=== PATIENT | female | born 1945 | race Caucasian/White ===

== ENCOUNTER 2019-09-08 13:15 | Inpatient (IN) ==
[2019-09-08] MEDS ORDERED: Nitroglycerin 0.4 MG TAB.SUBL SL PRN (13:30)
[2019-09-08] MEDS ORDERED: *HR* Enoxaparin 100 MG/ML SYRINGE SQ SCH (16:00)
[2019-09-08] MEDS ORDERED: *HR* Warfarin 3 MG TABLET PO ONE ×2 (18:00→19:15)
[2019-09-08] MEDS ORDERED: Warfarin perPT PO PRN (18:00)
[2019-09-08] MEDS ORDERED: *HR* Warfarin 3 MG TABLET PO SCH (18:00)
[2019-09-08] MEDS: *HR* Metformin 500 MG TABLET PO SCH (18:01)
[2019-09-09 06:02] LABS: Basophils # 0.1 K/mcL (0.0-0.2); Basophils % 0.8 %; Eosinophils # 0.2 K/mcL (0.0-0.6); Eosinophils % 4.1 %; Hematocrit 30.7 % (35.3-44.9); Hemoglobin 10.2 g/dL (11.5-15.4); Immature Granulocytes % 2.9 % (0-4); Lymphocytes # 0.9 K/mcL (0.6-4.6); Lymphocytes % 15.4 %; Mean Corpuscular HGB Conc 33.2 g/dL (31.6-35.5); Mean Corpuscular Hemoglobin 32.7 pg (28.0-33.3); Mean Corpuscular Volume 98.4 fL (83.0-100.0); Mean Platelet Volume 9.4 fL (9.4-12.4); Monocytes # 0.7 K/mcL (0.0-1.3); Monocytes % 11.5 %; Neutrophils # 3.9 K/mcL (1.6-8.9); Platelet Count 267 K/mcL (140-400); Red Blood Count 3.12 M/mcL (3.82-4.97); Red Cell Distribution Width 13.1 % (11.5-14.5); Segmented Neutrophils % 65.3 %; White Blood Count 5.9 K/mcL (4.3-11.1)
[2019-09-09 06:23] LABS: INR 1.8; Prothrombin Time 20.4 Seconds (9.4-12.1)
[2019-09-09 06:37] LABS: Calcium 9.1 mg/dL (8.6-10.3); Potassium 4.8 mEq/L (3.5-5.1)
[2019-09-09] MEDS: Isosorbide MONOnitrate (24 HR) 60 MG TAB.ER.24H PO SCH (08:34)
[2019-09-09] MEDS: Multivit/Ca/Min/Fe/FA 1 TAB TABLET PO SCH (08:34)
[2019-09-09] MEDS: Aspirin Enteric Coated 81 MG Tablet PO SCH ×2 (08:34→08:35)
[2019-09-09] MEDS: amLODIPine 5 MG TABLET PO SCH (08:34)
[2019-09-09] MEDS: *HR* SitaGLIPtin 25 MG TABLET PO SCH (08:35)
[2019-09-09] MEDS: Gabapentin 300 MG CAPSULE PO SCH (08:35)
[2019-09-09] MEDS: Cholecalciferol (D-3) 1,000 UNIT (25MCG) TABLET PO SCH (08:35)
[2019-09-09] MEDS: *HR* Metformin 500 MG TABLET PO SCH (08:35)
[2019-09-09] MEDS: *HR* Enoxaparin 100 MG/ML SYRINGE SQ SCH (15:53)
[2019-09-09] MEDS: GlipiZIDE 5 MG TABLET PO SCH (17:18)
[2019-09-09] MEDS ORDERED: *HR* Warfarin 2 MG TABLET PO ONE (18:00)
[2019-09-10] MEDS ORDERED: Acetaminophen 325 MG TABLET PO ONE ×2 (02:56→05:47)
[2019-09-10] MEDS ORDERED: Ondansetron ODT 4 MG TAB.RAPDIS SL ONE (05:54)
[2019-09-10 08:02] LABS: INR 2.2; Prothrombin Time 25.4 Seconds (9.4-12.1)
[2019-09-10 08:13] LABS: Calcium 9.3 mg/dL (8.6-10.3); Potassium 4.7 mEq/L (3.5-5.1)
[2019-09-10] MEDS: Multivit/Ca/Min/Fe/FA 1 TAB TABLET PO SCH (08:33)
[2019-09-10] MEDS: Gabapentin 300 MG CAPSULE PO SCH (08:33)
[2019-09-10] MEDS: GlipiZIDE 5 MG TABLET PO SCH ×2 (08:33→16:53)
[2019-09-10] MEDS: Isosorbide MONOnitrate (24 HR) 60 MG TAB.ER.24H PO SCH (08:33)
[2019-09-10] MEDS: Aspirin Enteric Coated 81 MG Tablet PO SCH (08:33)
[2019-09-10] MEDS: Cholecalciferol (D-3) 1,000 UNIT (25MCG) TABLET PO SCH (08:34)
[2019-09-10] MEDS: amLODIPine 5 MG TABLET PO SCH (08:34)
[2019-09-10] MEDS: *HR* SitaGLIPtin 25 MG TABLET PO SCH (08:34)
[2019-09-10] MEDS: *HR* Enoxaparin 100 MG/ML SYRINGE SQ SCH (14:45)
[2019-09-10] MEDS ORDERED: Ondansetron ODT 4 MG TAB.RAPDIS SL PRN (20:14)
[2019-09-10] MEDS: Acetaminophen 325 MG TABLET PO PRN (21:52)
[2019-09-10] MEDS: Nystatin POWDER 30 GM BOTTLE TP SCH (22:07)
[2019-09-11 08:26] LABS: INR 2.1; Prothrombin Time 23.9 Seconds (9.4-12.1)
[2019-09-11] MEDS: Aspirin Enteric Coated 81 MG Tablet PO SCH (09:07)
[2019-09-11] MEDS: Cholecalciferol (D-3) 1,000 UNIT (25MCG) TABLET PO SCH (09:07)
[2019-09-11] MEDS: GlipiZIDE 5 MG TABLET PO SCH ×2 (09:07→17:45)
[2019-09-11] MEDS: amLODIPine 5 MG TABLET PO SCH (09:07)
[2019-09-11] MEDS: Multivit/Ca/Min/Fe/FA 1 TAB TABLET PO SCH (09:07)
[2019-09-11] MEDS: Gabapentin 300 MG CAPSULE PO SCH (09:07)
[2019-09-11] MEDS: *HR* SitaGLIPtin 25 MG TABLET PO SCH (09:07)
[2019-09-11] MEDS: Isosorbide MONOnitrate (24 HR) 60 MG TAB.ER.24H PO SCH (09:08)
[2019-09-11] MEDS: Nystatin POWDER 30 GM BOTTLE TP SCH ×3 (09:10→19:26)
[2019-09-11] MEDS ORDERED: *HR* Warfarin 2 MG TABLET PO ONE (18:00)
[2019-09-11] MEDS: Acetaminophen 325 MG TABLET PO PRN (21:49)
[2019-09-12] MEDS: Acetaminophen 325 MG TABLET PO PRN ×2 (05:00→18:59)
[2019-09-12 07:56] LABS: Prothrombin Time 22.5 Seconds (9.4-12.1)
[2019-09-12] MEDS ORDERED: Bisacodyl 10 MG RECTAL SUPPOSITORY RC PRN (10:44)
[2019-09-12] MEDS: Gabapentin 300 MG CAPSULE PO SCH (11:09)
[2019-09-12] MEDS: Aspirin Enteric Coated 81 MG Tablet PO SCH (11:09)
[2019-09-12] MEDS: Cholecalciferol (D-3) 1,000 UNIT (25MCG) TABLET PO SCH (11:09)
[2019-09-12] MEDS: Multivit/Ca/Min/Fe/FA 1 TAB TABLET PO SCH (11:10)
[2019-09-12] MEDS: amLODIPine 5 MG TABLET PO SCH (11:10)
[2019-09-12] MEDS: Isosorbide MONOnitrate (24 HR) 60 MG TAB.ER.24H PO SCH (11:10)
[2019-09-12] MEDS: *HR* SitaGLIPtin 25 MG TABLET PO SCH (11:10)
[2019-09-12] MEDS: GlipiZIDE 5 MG TABLET PO SCH ×2 (11:11→16:59)
[2019-09-12] MEDS ORDERED: Dextrose Gel 15 GM/37.5 ML TUBE PO PRN ×2 (12:01)
[2019-09-12] MEDS ORDERED: *HR* Dextrose 50 % in Water (Vial) 50 ML VIAL IVP PRN (12:01)
[2019-09-12] MEDS ORDERED: D5% in Water 1,000 ML IVC PRN (12:01)
[2019-09-12] MEDS: Insulin LISPRO 300 UNITS/3 ML VIAL SQ SCH ×3 (12:47→20:35)
[2019-09-12] MEDS: Nystatin POWDER 30 GM BOTTLE TP SCH ×3 (17:05→20:41)
[2019-09-12] MEDS ORDERED: *HR* Warfarin 2 MG TABLET PO ONE (18:00)
[2019-09-12 21:05] LABS: Estimated Average Glucose 209 mg/dl
[2019-09-12 23:56] LABS: Bilirubin,Urine Negative (Negative); Blood,Urine Moderate (Negative); Clarity,Urine Clear (Clear); Color,Urine Yellow (Yellow); Glucose,Urine (UA) 100 mg/dL (Normal); Ketones,Urine Negative (Negative); Leukocyte Esterase,Urine Moderate (Negative); Nitrite,Urine Negative (Negative); Protein,Urine 100 mg/dL (Neg-Trace); Specific Gravity,Urine 1.015 (1.010-1.025); Urobilinogen,Urine Normal (Normal)
[2019-09-13 00:02] LABS: Squamous Epithelial Cell,Urine Few per lpf (None-Few); WBC,Urine 50-100 per hpf (0-3)
[2019-09-13 00:03] LABS: Bacteria,Urine Few per hpf (None-Few)
[2019-09-13 07:43] LABS: Prothrombin Time 23.2 Seconds (9.4-12.1)
[2019-09-13] MEDS: Insulin LISPRO 300 UNITS/3 ML VIAL SQ SCH ×4 (08:40→21:22)
[2019-09-13] MEDS: amLODIPine 5 MG TABLET PO SCH (08:52)
[2019-09-13] MEDS: Gabapentin 300 MG CAPSULE PO SCH (08:52)
[2019-09-13] MEDS: Aspirin Enteric Coated 81 MG Tablet PO SCH (08:53)
[2019-09-13] MEDS: Isosorbide MONOnitrate (24 HR) 60 MG TAB.ER.24H PO SCH (08:54)
[2019-09-13] MEDS: *HR* SitaGLIPtin 25 MG TABLET PO SCH (08:54)
[2019-09-13] MEDS: Cholecalciferol (D-3) 1,000 UNIT (25MCG) TABLET PO SCH (08:54)
[2019-09-13] MEDS: Multivit/Ca/Min/Fe/FA 1 TAB TABLET PO SCH (08:54)
[2019-09-13] MEDS: GlipiZIDE 5 MG TABLET PO SCH ×2 (08:54→17:03)
[2019-09-13] MEDS: Nystatin POWDER 30 GM BOTTLE TP SCH ×3 (08:55→21:22)
[2019-09-13] MEDS ORDERED: *HR* Warfarin 2 MG TABLET PO ONE (18:00)
[2019-09-13] MEDS: Acetaminophen 325 MG TABLET PO PRN (22:33)
[2019-09-14] MEDS: Insulin LISPRO 300 UNITS/3 ML VIAL SQ SCH ×4 (08:02→20:03)
[2019-09-14 08:10] LABS: INR 1.9; Prothrombin Time 21.5 Seconds (9.4-12.1)
[2019-09-14] MEDS: Isosorbide MONOnitrate (24 HR) 60 MG TAB.ER.24H PO SCH (08:24)
[2019-09-14] MEDS: Aspirin Enteric Coated 81 MG Tablet PO SCH (08:25)
[2019-09-14] MEDS: GlipiZIDE 5 MG TABLET PO SCH ×3 (08:25→18:11)
[2019-09-14] MEDS: Gabapentin 300 MG CAPSULE PO SCH (08:25)
[2019-09-14] MEDS: Multivit/Ca/Min/Fe/FA 1 TAB TABLET PO SCH (08:25)
[2019-09-14] MEDS: Cholecalciferol (D-3) 1,000 UNIT (25MCG) TABLET PO SCH (08:25)
[2019-09-14] MEDS: *HR* SitaGLIPtin 25 MG TABLET PO SCH (08:25)
[2019-09-14] MEDS: amLODIPine 5 MG TABLET PO SCH (08:26)
[2019-09-14] MEDS: Nystatin POWDER 30 GM BOTTLE TP SCH ×3 (08:30→20:04)
[2019-09-14] MEDS: Acetaminophen 325 MG TABLET PO PRN ×2 (10:33→18:11)
[2019-09-14] MEDS: cephALEXin 500 MG CAPSULE PO SCH ×3 (10:33→20:02)
[2019-09-14] MEDS ORDERED: *HR* Warfarin 5 MG TABLET PO ONE (18:00)
[2019-09-15] MEDS: Acetaminophen 325 MG TABLET PO PRN ×2 (02:19→20:31)
[2019-09-15 07:27] LABS: INR 1.9; Prothrombin Time 21.6 Seconds (9.4-12.1)
[2019-09-15] MEDS: Insulin LISPRO 300 UNITS/3 ML VIAL SQ SCH ×4 (07:37→20:30)
[2019-09-15] MEDS: Isosorbide MONOnitrate (24 HR) 60 MG TAB.ER.24H PO SCH (08:13)
[2019-09-15] MEDS: Aspirin Enteric Coated 81 MG Tablet PO SCH (08:13)
[2019-09-15] MEDS: Multivit/Ca/Min/Fe/FA 1 TAB TABLET PO SCH (08:13)
[2019-09-15] MEDS: *HR* SitaGLIPtin 25 MG TABLET PO SCH (08:13)
[2019-09-15] MEDS: Gabapentin 300 MG CAPSULE PO SCH (08:13)
[2019-09-15] MEDS: Cholecalciferol (D-3) 1,000 UNIT (25MCG) TABLET PO SCH (08:13)
[2019-09-15] MEDS: amLODIPine 5 MG TABLET PO SCH (08:13)
[2019-09-15] MEDS: GlipiZIDE 5 MG TABLET PO SCH ×2 (08:13→18:02)
[2019-09-15] MEDS: cephALEXin 500 MG CAPSULE PO SCH (08:13)
[2019-09-15] MEDS: Nystatin POWDER 30 GM BOTTLE TP SCH ×3 (08:14→20:31)
[2019-09-15 12:10] LABS: Hematocrit 33.2 % (35.3-44.9); Hemoglobin 10.6 g/dL (11.5-15.4); Mean Corpuscular HGB Conc 31.9 g/dL (31.6-35.5); Mean Corpuscular Hemoglobin 32.5 pg (28.0-33.3); Mean Corpuscular Volume 101.8 fL (83.0-100.0); Mean Platelet Volume 9.3 fL (9.4-12.4); Platelet Count 236 K/mcL (140-400); Red Blood Count 3.26 M/mcL (3.82-4.97); Red Cell Distribution Width 13.2 % (11.5-14.5)
[2019-09-15 12:24] LABS: Calcium 9.1 mg/dL (8.6-10.3); Potassium 4.8 mEq/L (3.5-5.1)
[2019-09-15] MEDS ORDERED: *HR* Warfarin 5 MG TABLET PO ONE (18:00)
[2019-09-16] MEDS: Acetaminophen 325 MG TABLET PO PRN ×2 (05:28→19:49)
[2019-09-16 07:05] LABS: INR 1.9; Prothrombin Time 21.7 Seconds (9.4-12.1)
[2019-09-16] MEDS: Insulin LISPRO 300 UNITS/3 ML VIAL SQ SCH ×4 (07:27→19:49)
[2019-09-16] MEDS: Isosorbide MONOnitrate (24 HR) 60 MG TAB.ER.24H PO SCH (07:52)
[2019-09-16] MEDS: Aspirin Enteric Coated 81 MG Tablet PO SCH (07:52)
[2019-09-16] MEDS: Gabapentin 300 MG CAPSULE PO SCH (07:52)
[2019-09-16] MEDS: Multivit/Ca/Min/Fe/FA 1 TAB TABLET PO SCH (07:52)
[2019-09-16] MEDS: amLODIPine 5 MG TABLET PO SCH (07:52)
[2019-09-16] MEDS: GlipiZIDE 5 MG TABLET PO SCH ×2 (07:52→16:56)
[2019-09-16] MEDS: *HR* SitaGLIPtin 25 MG TABLET PO SCH (07:53)
[2019-09-16] MEDS: Cholecalciferol (D-3) 1,000 UNIT (25MCG) TABLET PO SCH (07:53)
[2019-09-16] MEDS: Nystatin POWDER 30 GM BOTTLE TP SCH ×2 (07:59→15:11)
[2019-09-16] MEDS ORDERED: *HR* Warfarin 5 MG TABLET PO ONE (18:00)
[2019-09-17] MEDS: Acetaminophen 325 MG TABLET PO PRN (02:14)
[2019-09-17] MEDS: Insulin LISPRO 300 UNITS/3 ML VIAL SQ SCH ×4 (08:11→20:29)
[2019-09-17] MEDS: GlipiZIDE 5 MG TABLET PO SCH ×2 (08:48→16:36)
[2019-09-17] MEDS: Isosorbide MONOnitrate (24 HR) 60 MG TAB.ER.24H PO SCH (08:48)
[2019-09-17] MEDS: amLODIPine 5 MG TABLET PO SCH (08:48)
[2019-09-17] MEDS: *HR* SitaGLIPtin 25 MG TABLET PO SCH (08:50)
[2019-09-17] MEDS: Cholecalciferol (D-3) 1,000 UNIT (25MCG) TABLET PO SCH (08:50)
[2019-09-17] MEDS: Gabapentin 300 MG CAPSULE PO SCH (08:50)
[2019-09-17] MEDS: Aspirin Enteric Coated 81 MG Tablet PO SCH (08:50)
[2019-09-17] MEDS: Multivit/Ca/Min/Fe/FA 1 TAB TABLET PO SCH (08:50)
[2019-09-17 13:44] LABS: Prothrombin Time 22.7 Seconds (9.4-12.1)
[2019-09-17] MEDS ORDERED: *HR* Warfarin 2 MG TABLET PO ONE (18:00)
[2019-09-18] MEDS: Acetaminophen 325 MG TABLET PO PRN ×2 (05:45→21:34)
[2019-09-18 06:59] LABS: Prothrombin Time 22.5 Seconds (9.4-12.1)
[2019-09-18] MEDS: Insulin LISPRO 300 UNITS/3 ML VIAL SQ SCH ×4 (08:08→20:04)
[2019-09-18] MEDS: amLODIPine 5 MG TABLET PO SCH (08:38)
[2019-09-18] MEDS: Aspirin Enteric Coated 81 MG Tablet PO SCH (08:39)
[2019-09-18] MEDS: GlipiZIDE 5 MG TABLET PO SCH ×2 (08:39→16:45)
[2019-09-18] MEDS: *HR* SitaGLIPtin 25 MG TABLET PO SCH (08:39)
[2019-09-18] MEDS: Gabapentin 300 MG CAPSULE PO SCH (08:39)
[2019-09-18] MEDS: Cholecalciferol (D-3) 1,000 UNIT (25MCG) TABLET PO SCH (08:40)
[2019-09-18] MEDS: Isosorbide MONOnitrate (24 HR) 60 MG TAB.ER.24H PO SCH (08:40)
[2019-09-18] MEDS: Multivit/Ca/Min/Fe/FA 1 TAB TABLET PO SCH (08:40)
[2019-09-18] MEDS ORDERED: *HR* Warfarin 5 MG TABLET PO ONE (18:15)
[2019-09-19] MEDS: Insulin LISPRO 300 UNITS/3 ML VIAL SQ SCH ×4 (07:37→20:30)
[2019-09-19] MEDS: *HR* SitaGLIPtin 25 MG TABLET PO SCH (08:51)
[2019-09-19] MEDS: Isosorbide MONOnitrate (24 HR) 60 MG TAB.ER.24H PO SCH (08:51)
[2019-09-19] MEDS: GlipiZIDE 5 MG TABLET PO SCH ×2 (08:51→17:01)
[2019-09-19] MEDS: amLODIPine 5 MG TABLET PO SCH (08:52)
[2019-09-19] MEDS: Aspirin Enteric Coated 81 MG Tablet PO SCH (08:52)
[2019-09-19] MEDS: Gabapentin 300 MG CAPSULE PO SCH (08:52)
[2019-09-19] MEDS: Cholecalciferol (D-3) 1,000 UNIT (25MCG) TABLET PO SCH (08:54)
[2019-09-19] MEDS: Multivit/Ca/Min/Fe/FA 1 TAB TABLET PO SCH (08:54)
[2019-09-19 09:41] LABS: INR 1.9; Prothrombin Time 21.4 Seconds (9.4-12.1)
[2019-09-19] MEDS: Acetaminophen 325 MG TABLET PO PRN ×2 (13:41→20:31)
[2019-09-19] MEDS ORDERED: *HR* Warfarin 5 MG TABLET PO ONE (18:00)
[2019-09-19] MEDS: Nystatin POWDER 30 GM BOTTLE TP PRN (20:35)
[2019-09-20] MEDS: Insulin LISPRO 300 UNITS/3 ML VIAL SQ SCH ×4 (08:18→21:04)
[2019-09-20] MEDS: Gabapentin 300 MG CAPSULE PO SCH (08:23)
[2019-09-20] MEDS: *HR* SitaGLIPtin 25 MG TABLET PO SCH (08:23)
[2019-09-20] MEDS: Aspirin Enteric Coated 81 MG Tablet PO SCH (08:24)
[2019-09-20] MEDS: amLODIPine 5 MG TABLET PO SCH (08:24)
[2019-09-20] MEDS: GlipiZIDE 5 MG TABLET PO SCH ×2 (08:24→17:21)
[2019-09-20] MEDS: Multivit/Ca/Min/Fe/FA 1 TAB TABLET PO SCH (08:24)
[2019-09-20] MEDS: Isosorbide MONOnitrate (24 HR) 60 MG TAB.ER.24H PO SCH (08:25)
[2019-09-20] MEDS: Cholecalciferol (D-3) 1,000 UNIT (25MCG) TABLET PO SCH (08:25)
[2019-09-20] MEDS ORDERED: Furosemide 20 MG TABLET PO ONE (09:11)
[2019-09-20 09:25] LABS: INR 1.9; Prothrombin Time 21.5 Seconds (9.4-12.1)
[2019-09-20] MEDS: Nystatin POWDER 30 GM BOTTLE TP PRN ×2 (11:07→21:13)
[2019-09-20] MEDS: Acetaminophen 325 MG TABLET PO PRN (13:34)
[2019-09-20] MEDS ORDERED: *HR* Warfarin 3 MG TABLET PO ONE (18:00)
[2019-09-21] MEDS: Acetaminophen 325 MG TABLET PO PRN ×3 (02:43→22:44)
[2019-09-21 07:24] LABS: Basophils % 0.4 %; Eosinophils # 0.3 K/mcL (0.0-0.6); Eosinophils % 5.6 %; Hematocrit 30.1 % (35.3-44.9); Immature Granulocytes % 0.4 % (0-4); Lymphocytes # 0.9 K/mcL (0.6-4.6); Lymphocytes % 17.8 %; Mean Corpuscular HGB Conc 33.2 g/dL (31.6-35.5); Mean Corpuscular Hemoglobin 32.9 pg (28.0-33.3); Mean Platelet Volume 8.6 fL (9.4-12.4); Monocytes # 0.6 K/mcL (0.0-1.3); Monocytes % 11.7 %; Neutrophils # 3.1 K/mcL (1.6-8.9); Platelet Count 179 K/mcL (140-400); Red Blood Count 3.04 M/mcL (3.82-4.97); Red Cell Distribution Width 12.8 % (11.5-14.5); Segmented Neutrophils % 64.1 %; White Blood Count 4.8 K/mcL (4.3-11.1)
[2019-09-21 07:31] LABS: INR 2.2; Prothrombin Time 25.5 Seconds (9.4-12.1)
[2019-09-21 07:44] LABS: Calcium 9.1 mg/dL (8.6-10.3); Potassium 4.3 mEq/L (3.5-5.1)
[2019-09-21] MEDS: Insulin LISPRO 300 UNITS/3 ML VIAL SQ SCH ×4 (09:17→21:23)
[2019-09-21] MEDS: *HR* SitaGLIPtin 25 MG TABLET PO SCH (10:15)
[2019-09-21] MEDS: Cholecalciferol (D-3) 1,000 UNIT (25MCG) TABLET PO SCH (10:15)
[2019-09-21] MEDS: GlipiZIDE 5 MG TABLET PO SCH ×2 (10:16→17:29)
[2019-09-21] MEDS: Isosorbide MONOnitrate (24 HR) 60 MG TAB.ER.24H PO SCH (10:16)
[2019-09-21] MEDS: amLODIPine 5 MG TABLET PO SCH (10:16)
[2019-09-21] MEDS: Gabapentin 300 MG CAPSULE PO SCH (10:16)
[2019-09-21] MEDS: Aspirin Enteric Coated 81 MG Tablet PO SCH (10:16)
[2019-09-21] MEDS: Multivit/Ca/Min/Fe/FA 1 TAB TABLET PO SCH (10:16)
[2019-09-21 12:46] LABS: Bilirubin,Urine Negative (Negative); Blood,Urine Negative (Negative); Clarity,Urine Clear (Clear); Color,Urine Yellow (Yellow); Glucose,Urine (UA) Normal (Normal); Ketones,Urine Negative (Negative); Leukocyte Esterase,Urine Negative (Negative); Nitrite,Urine Negative (Negative); Protein,Urine 100 mg/dL (Neg-Trace); Specific Gravity,Urine 1.015 (1.010-1.025); Urobilinogen,Urine Normal (Normal)
[2019-09-21 12:54] LABS: Squamous Epithelial Cell,Urine Few per lpf (None-Few)
[2019-09-21] MEDS: Furosemide 20 MG TABLET PO SCH (17:29)
[2019-09-21] MEDS ORDERED: *HR* Warfarin 3 MG TABLET PO ONE (18:00)
[2019-09-22] MEDS: amLODIPine 5 MG TABLET PO SCH (08:12)
[2019-09-22] MEDS: Cholecalciferol (D-3) 1,000 UNIT (25MCG) TABLET PO SCH (08:12)
[2019-09-22] MEDS: Multivit/Ca/Min/Fe/FA 1 TAB TABLET PO SCH (08:12)
[2019-09-22] MEDS: Insulin LISPRO 300 UNITS/3 ML VIAL SQ SCH ×4 (08:12→20:22)
[2019-09-22] MEDS: Isosorbide MONOnitrate (24 HR) 60 MG TAB.ER.24H PO SCH (08:13)
[2019-09-22] MEDS: *HR* SitaGLIPtin 25 MG TABLET PO SCH (08:13)
[2019-09-22] MEDS: GlipiZIDE 5 MG TABLET PO SCH ×2 (08:13→17:54)
[2019-09-22] MEDS: Gabapentin 300 MG CAPSULE PO SCH (08:13)
[2019-09-22] MEDS: Aspirin Enteric Coated 81 MG Tablet PO SCH (08:14)
[2019-09-22] MEDS: Furosemide 20 MG TABLET PO SCH ×2 (08:14→17:55)
[2019-09-22 10:36] LABS: INR 2.5; Prothrombin Time 28.1 Seconds (9.4-12.1)
[2019-09-22] MEDS ORDERED: *HR* Warfarin 2 MG TABLET PO ONE (18:00)
[2019-09-22] MEDS: Acetaminophen 325 MG TABLET PO PRN (20:21)
[2019-09-22] MEDS: Nystatin POWDER 30 GM BOTTLE TP PRN (20:22)
[2019-09-23 08:20] LABS: INR 2.8; Prothrombin Time 32.3 Seconds (9.4-12.1)
[2019-09-23] MEDS: Insulin LISPRO 300 UNITS/3 ML VIAL SQ SCH ×4 (08:49→20:42)
[2019-09-23] MEDS: amLODIPine 5 MG TABLET PO SCH (09:43)
[2019-09-23] MEDS: Aspirin Enteric Coated 81 MG Tablet PO SCH (09:43)
[2019-09-23] MEDS: Multivit/Ca/Min/Fe/FA 1 TAB TABLET PO SCH (09:44)
[2019-09-23] MEDS: *HR* SitaGLIPtin 25 MG TABLET PO SCH (09:44)
[2019-09-23] MEDS: Furosemide 20 MG TABLET PO SCH ×2 (09:44→17:06)
[2019-09-23] MEDS: GlipiZIDE 5 MG TABLET PO SCH ×2 (09:45→17:06)
[2019-09-23] MEDS: Gabapentin 300 MG CAPSULE PO SCH (09:45)
[2019-09-23] MEDS: Isosorbide MONOnitrate (24 HR) 60 MG TAB.ER.24H PO SCH (09:45)
[2019-09-23] MEDS: Cholecalciferol (D-3) 1,000 UNIT (25MCG) TABLET PO SCH (09:45)
[2019-09-23] MEDS: *HR* HYDROcodone/Acet 5/325 mg TABLET PO PRN (14:05)
[2019-09-23] MEDS ORDERED: *HR* Warfarin 1 MG TABLET PO ONE (18:00)
[2019-09-23] MEDS: Acetaminophen 325 MG TABLET PO PRN (22:38)
[2019-09-24] MEDS ORDERED: Furosemide 40 MG/4 ML VIAL IVP SCH (09:00)
[2019-09-24] MEDS: Multivit/Ca/Min/Fe/FA 1 TAB TABLET PO SCH (09:23)
[2019-09-24] MEDS: *HR* HYDROcodone/Acet 5/325 mg TABLET PO PRN (09:23)
[2019-09-24] MEDS: *HR* SitaGLIPtin 25 MG TABLET PO SCH (09:23)
[2019-09-24] MEDS: Aspirin Enteric Coated 81 MG Tablet PO SCH (09:23)
[2019-09-24] MEDS: Gabapentin 300 MG CAPSULE PO SCH (09:23)
[2019-09-24] MEDS: amLODIPine 5 MG TABLET PO SCH (09:23)
[2019-09-24] MEDS: GlipiZIDE 5 MG TABLET PO SCH ×2 (09:23→18:02)
[2019-09-24] MEDS: Isosorbide MONOnitrate (24 HR) 60 MG TAB.ER.24H PO SCH (09:23)
[2019-09-24] MEDS: Insulin LISPRO 300 UNITS/3 ML VIAL SQ SCH ×4 (09:24→20:02)
[2019-09-24] MEDS: Cholecalciferol (D-3) 1,000 UNIT (25MCG) TABLET PO SCH (09:26)
[2019-09-24 09:51] LABS: INR 2.6; Prothrombin Time 29.2 Seconds (9.4-12.1)
[2019-09-24] MEDS: Furosemide 40 MG TABLET PO SCH ×2 (12:43→18:02)
[2019-09-24] MEDS ORDERED: *HR* Warfarin 1 MG TABLET PO ONE (18:00)
[2019-09-24] MEDS: Acetaminophen 325 MG TABLET PO PRN (19:58)
[2019-09-25] MEDS: Insulin LISPRO 300 UNITS/3 ML VIAL SQ SCH ×4 (07:55→21:31)
[2019-09-25] MEDS: *HR* SitaGLIPtin 25 MG TABLET PO SCH (08:14)
[2019-09-25] MEDS: Furosemide 40 MG TABLET PO SCH ×2 (08:14→18:52)
[2019-09-25] MEDS: GlipiZIDE 5 MG TABLET PO SCH ×2 (08:14→18:52)
[2019-09-25] MEDS: Gabapentin 300 MG CAPSULE PO SCH (08:14)
[2019-09-25] MEDS: Cholecalciferol (D-3) 1,000 UNIT (25MCG) TABLET PO SCH (08:15)
[2019-09-25] MEDS: amLODIPine 5 MG TABLET PO SCH (08:15)
[2019-09-25] MEDS: Isosorbide MONOnitrate (24 HR) 60 MG TAB.ER.24H PO SCH (08:15)
[2019-09-25] MEDS: Multivit/Ca/Min/Fe/FA 1 TAB TABLET PO SCH (08:15)
[2019-09-25] MEDS: Aspirin Enteric Coated 81 MG Tablet PO SCH (08:15)
[2019-09-25] MEDS: *HR* HYDROcodone/Acet 5/325 mg TABLET PO PRN ×2 (09:50→21:43)
[2019-09-25] MEDS: Furosemide 20 MG TABLET PO SCH (10:23)
[2019-09-25 12:39] LABS: INR 1.9; Prothrombin Time 22.1 Seconds (9.4-12.1)
[2019-09-25 12:41] LABS: Hematocrit 33.3 % (35.3-44.9); Hemoglobin 10.9 g/dL (11.5-15.4); Mean Corpuscular HGB Conc 32.7 g/dL (31.6-35.5); Mean Corpuscular Hemoglobin 32.6 pg (28.0-33.3); Mean Corpuscular Volume 99.7 fL (83.0-100.0); Mean Platelet Volume 9.1 fL (9.4-12.4); Platelet Count 211 K/mcL (140-400); Red Blood Count 3.34 M/mcL (3.82-4.97); Red Cell Distribution Width 12.8 % (11.5-14.5); White Blood Count 5.4 K/mcL (4.3-11.1)
[2019-09-25 12:51] LABS: Calcium 9.3 mg/dL (8.6-10.3); Potassium 4.3 mEq/L (3.5-5.1)
[2019-09-25] MEDS ORDERED: *HR* Warfarin 2 MG TABLET PO ONE (18:00)
[2019-09-26 07:13] VITALS: BP 130/64
[2019-09-26 08:10] LABS: INR 1.8; Prothrombin Time 20.1 Seconds (9.4-12.1)
[2019-09-26] MEDS: amLODIPine 5 MG TABLET PO SCH (08:28)
[2019-09-26] MEDS: Gabapentin 300 MG CAPSULE PO SCH (08:28)
[2019-09-26] MEDS: Multivit/Ca/Min/Fe/FA 1 TAB TABLET PO SCH (08:28)
[2019-09-26] MEDS: Aspirin Enteric Coated 81 MG Tablet PO SCH (08:28)
[2019-09-26] MEDS: *HR* SitaGLIPtin 25 MG TABLET PO SCH (08:28)
[2019-09-26] MEDS: Isosorbide MONOnitrate (24 HR) 60 MG TAB.ER.24H PO SCH (08:28)
[2019-09-26] MEDS: Insulin LISPRO 300 UNITS/3 ML VIAL SQ SCH (08:29)
[2019-09-26] MEDS: Cholecalciferol (D-3) 1,000 UNIT (25MCG) TABLET PO SCH (08:29)
[2019-09-26] MEDS: GlipiZIDE 5 MG TABLET PO SCH (08:29)
[2019-09-26] MEDS ORDERED: Furosemide 40 MG TABLET PO SCH (09:00)
[2019-09-26 09:42] LABS: Hematocrit 32.7 % (35.3-44.9); Hemoglobin 10.7 g/dL (11.5-15.4); Mean Corpuscular HGB Conc 32.7 g/dL (31.6-35.5); Mean Corpuscular Hemoglobin 32.4 pg (28.0-33.3); Mean Corpuscular Volume 99.1 fL (83.0-100.0); Mean Platelet Volume 9.4 fL (9.4-12.4); Platelet Count 214 K/mcL (140-400); Red Cell Distribution Width 12.8 % (11.5-14.5); White Blood Count 5.3 K/mcL (4.3-11.1)
[2019-09-26 10:00] LABS: Calcium 9.5 mg/dL (8.6-10.3)
== END 2019-09-26 10:55 | disposition home or self-care (01) | DRG 945 ==
LOC: INPPIK 15:38
PROVIDERS: ADMIT Family Medicine; ATTEND Family Medicine

== ENCOUNTER 2020-05-17 14:51 | Inpatient (IN) ==
[2020-05-18] MEDS: Insulin LISPRO 300 UNITS/3 ML VIAL SQ SCH ×2 (16:58→21:20)
[2020-05-18] MEDS: Gabapentin 300 MG CAPSULE PO SCH (19:50)
[2020-05-18] MEDS: Melatonin 3 MG TABLET PO SCH (19:50)
[2020-05-18] MEDS: Apixaban 5 MG TABLET PO SCH (19:51)
[2020-05-18] MEDS: Acetaminophen 325 MG TABLET PO PRN (19:52)
[2020-05-18] MEDS ORDERED: Insulin DETEMIR 100 UNIT/ML X5UNITS SQ SCH (21:00)
[2020-05-19 05:49] LABS: Basophils # 0.1 K/mcL (0.0-0.2); Basophils % 0.6 %; Eosinophils % 0.3 %; Hematocrit 33.5 % (35.3-44.9); Immature Granulocytes % 4.9 % (0-4); Lymphocytes % 12.5 %; Mean Corpuscular HGB Conc 32.8 g/dL (31.6-35.5); Mean Corpuscular Hemoglobin 32.6 pg (28.0-33.3); Mean Corpuscular Volume 99.4 fL (83.0-100.0); Monocytes # 0.7 K/mcL (0.0-1.3); Monocytes % 9.5 %; Neutrophils # 5.6 K/mcL (1.6-8.9); Nucleated Red Blood Cells 0.3 /100 WBC (0); Platelet Count 292 K/mcL (140-400); Red Blood Count 3.37 M/mcL (3.82-4.97); Red Cell Distribution Width 12.9 % (11.5-14.5); Segmented Neutrophils % 72.2 %; White Blood Count 7.8 K/mcL (4.3-11.1)
[2020-05-19 06:07] LABS: Calcium 8.9 mg/dL (8.6-10.3); Potassium 4.2 mEq/L (3.5-5.1)
[2020-05-19] MEDS: Apixaban 5 MG TABLET PO SCH ×2 (08:01→20:36)
[2020-05-19] MEDS: Cholecalciferol (D-3) 1,000 UNIT (25MCG) TABLET PO SCH (08:02)
[2020-05-19] MEDS: Gabapentin 300 MG CAPSULE PO SCH ×2 (08:02→20:36)
[2020-05-19] MEDS: *HR* SitaGLIPtin 25 MG TABLET PO SCH (08:02)
[2020-05-19] MEDS: Multivit/Ca/Min/Fe/FA 1 TAB TABLET PO SCH (08:02)
[2020-05-19] MEDS: Insulin LISPRO 300 UNITS/3 ML VIAL SQ SCH ×4 (08:04→20:37)
[2020-05-19] MEDS ORDERED: predniSONE 20 MG TABLET PO SCH (09:00)
[2020-05-19] MEDS ORDERED: *HR* LORazepam 0.5 MG TABLET PO PRN (16:15)
[2020-05-19] MEDS: Furosemide 20 MG TABLET PO SCH (16:54)
[2020-05-19] MEDS: Budesonide/Formoterol 160/4.5 1 PUFF INH IH SCH ×2 (17:58→22:01)
[2020-05-19] MEDS: Melatonin 3 MG TABLET PO SCH (20:36)
[2020-05-19] MEDS: Insulin DETEMIR 100 UNIT/ML X5UNITS SQ SCH (20:42)
[2020-05-20] MEDS: Acetaminophen 325 MG TABLET PO PRN ×2 (00:53→22:27)
[2020-05-20] MEDS: *HR* SitaGLIPtin 25 MG TABLET PO SCH (08:04)
[2020-05-20] MEDS: Apixaban 5 MG TABLET PO SCH ×2 (08:04→21:31)
[2020-05-20] MEDS: Cholecalciferol (D-3) 1,000 UNIT (25MCG) TABLET PO SCH (08:04)
[2020-05-20] MEDS: Multivit/Ca/Min/Fe/FA 1 TAB TABLET PO SCH (08:04)
[2020-05-20] MEDS: Gabapentin 300 MG CAPSULE PO SCH ×2 (08:04→21:31)
[2020-05-20] MEDS: Furosemide 20 MG TABLET PO SCH (08:04)
[2020-05-20] MEDS: Insulin LISPRO 300 UNITS/3 ML VIAL SQ SCH ×5 (08:06→21:33)
[2020-05-20] MEDS: Insulin DETEMIR 100 UNIT/ML X5UNITS SQ SCH ×2 (09:56→21:47)
[2020-05-20] MEDS: Budesonide/Formoterol 160/4.5 1 PUFF INH IH SCH ×2 (11:03→21:07)
[2020-05-20] MEDS: Melatonin 3 MG TABLET PO SCH (21:31)
[2020-05-21] MEDS: Budesonide/Formoterol 160/4.5 1 PUFF INH IH SCH ×2 (07:54→07:58)
[2020-05-21] MEDS: Insulin LISPRO 300 UNITS/3 ML VIAL SQ SCH ×4 (08:21→20:07)
[2020-05-21] MEDS: Insulin DETEMIR 100 UNIT/ML X5UNITS SQ SCH ×2 (08:23→20:23)
[2020-05-21] MEDS: Gabapentin 300 MG CAPSULE PO SCH ×2 (08:28→20:07)
[2020-05-21] MEDS: Cholecalciferol (D-3) 1,000 UNIT (25MCG) TABLET PO SCH (08:29)
[2020-05-21] MEDS: Multivit/Ca/Min/Fe/FA 1 TAB TABLET PO SCH (08:30)
[2020-05-21] MEDS: Apixaban 5 MG TABLET PO SCH ×2 (08:30→20:07)
[2020-05-21] MEDS: *HR* SitaGLIPtin 25 MG TABLET PO SCH (08:31)
[2020-05-21] MEDS: Melatonin 3 MG TABLET PO SCH (20:06)
[2020-05-21] MEDS: Acetaminophen 325 MG TABLET PO PRN (20:06)
[2020-05-22 07:12] LABS: Hematocrit 35.3 % (35.3-44.9); Mean Corpuscular HGB Conc 31.2 g/dL (31.6-35.5); Mean Corpuscular Hemoglobin 33.2 pg (28.0-33.3); Mean Corpuscular Volume 106.6 fL (83.0-100.0); Platelet Count 226 K/mcL (140-400); Red Blood Count 3.31 M/mcL (3.82-4.97); Red Cell Distribution Width 13.5 % (11.5-14.5); White Blood Count 5.8 K/mcL (4.3-11.1)
[2020-05-22 07:19] LABS: Albumin 3.3 g/dL (3.5-5.7); Albumin/Globulin Ratio 1.3 (1.1-2.2); Bilirubin,Total 0.4 mg/dL (0.3-1.0); Globulin 2.5 g/dL (2.4-3.5); Magnesium 1.8 mg/dL (1.6-2.6); Potassium 4.5 mEq/L (3.5-5.1); Total Protein 5.8 g/dL (6.4-8.9)
[2020-05-22] MEDS: Apixaban 5 MG TABLET PO SCH ×2 (08:29→21:15)
[2020-05-22] MEDS: Insulin DETEMIR 100 UNIT/ML X5UNITS SQ SCH ×2 (08:29→21:15)
[2020-05-22] MEDS: Multivit/Ca/Min/Fe/FA 1 TAB TABLET PO SCH (08:29)
[2020-05-22] MEDS: *HR* SitaGLIPtin 25 MG TABLET PO SCH (08:29)
[2020-05-22] MEDS: Cholecalciferol (D-3) 1,000 UNIT (25MCG) TABLET PO SCH (08:29)
[2020-05-22] MEDS: Gabapentin 300 MG CAPSULE PO SCH ×2 (08:29→21:15)
[2020-05-22] MEDS: Insulin LISPRO 300 UNITS/3 ML VIAL SQ SCH ×4 (08:34→21:09)
[2020-05-22] MEDS ORDERED: Albuterol 2.5 MG/3 ML NEBULIZER IH PRN (10:42)
[2020-05-22] MEDS ORDERED: *HR* Dextrose 50 % in Water (Vial) 50 ML VIAL IVP PRN (10:45)
[2020-05-22] MEDS ORDERED: D5% in Water 1,000 ML IVC PRN (10:45)
[2020-05-22] MEDS ORDERED: Dextrose Gel 15 GM/37.5 ML TUBE PO PRN ×2 (10:45)
[2020-05-22] MEDS: Metoprolol XL (24 HR) Succ 25 MG TAB.ER.24H PO SCH (12:05)
[2020-05-22] MEDS ORDERED: Budesonide/Formoterol 160/4.5 1 PUFF INH IH SCH (13:15)
[2020-05-22] MEDS: Melatonin 3 MG TABLET PO SCH (21:15)
[2020-05-22] MEDS: Acetaminophen 325 MG TABLET PO PRN (21:49)
[2020-05-22] MEDS: Budesonide/Formoterol 160/4.5 1 PUFF INH IH SCH (22:37)
[2020-05-23] MEDS: *HR* SitaGLIPtin 25 MG TABLET PO SCH (09:23)
[2020-05-23] MEDS: Cholecalciferol (D-3) 1,000 UNIT (25MCG) TABLET PO SCH (09:23)
[2020-05-23] MEDS: Multivit/Ca/Min/Fe/FA 1 TAB TABLET PO SCH (09:23)
[2020-05-23] MEDS: Furosemide 20 MG TABLET PO SCH (09:24)
[2020-05-23] MEDS: Metoprolol XL (24 HR) Succ 25 MG TAB.ER.24H PO SCH (09:24)
[2020-05-23] MEDS: Apixaban 5 MG TABLET PO SCH ×2 (09:24→20:49)
[2020-05-23] MEDS: Insulin LISPRO 300 UNITS/3 ML VIAL SQ SCH ×4 (09:25→20:49)
[2020-05-23] MEDS: Insulin DETEMIR 100 UNIT/ML X5UNITS SQ SCH ×2 (09:25→20:49)
[2020-05-23] MEDS: Gabapentin 300 MG CAPSULE PO SCH ×2 (09:27→22:19)
[2020-05-23] MEDS: Budesonide/Formoterol 160/4.5 1 PUFF INH IH SCH ×2 (09:55→21:07)
[2020-05-23] MEDS: Acetaminophen 325 MG TABLET PO PRN (20:48)
[2020-05-23] MEDS: Melatonin 3 MG TABLET PO SCH (20:49)
[2020-05-24] MEDS: Acetaminophen 325 MG TABLET PO PRN ×2 (03:56→18:05)
[2020-05-24] MEDS: Insulin LISPRO 300 UNITS/3 ML VIAL SQ SCH ×4 (07:20→19:55)
[2020-05-24] MEDS: Cholecalciferol (D-3) 1,000 UNIT (25MCG) TABLET PO SCH (09:01)
[2020-05-24] MEDS: Metoprolol XL (24 HR) Succ 25 MG TAB.ER.24H PO SCH (09:01)
[2020-05-24] MEDS: Furosemide 20 MG TABLET PO SCH (09:01)
[2020-05-24] MEDS: Apixaban 5 MG TABLET PO SCH ×2 (09:01→19:59)
[2020-05-24] MEDS: Multivit/Ca/Min/Fe/FA 1 TAB TABLET PO SCH (09:02)
[2020-05-24] MEDS: Gabapentin 300 MG CAPSULE PO SCH ×2 (09:02→19:59)
[2020-05-24] MEDS: *HR* SitaGLIPtin 25 MG TABLET PO SCH (09:02)
[2020-05-24] MEDS: Insulin DETEMIR 100 UNIT/ML X5UNITS SQ SCH ×2 (09:03→20:00)
[2020-05-24] MEDS: Budesonide/Formoterol 160/4.5 1 PUFF INH IH SCH ×2 (11:31→22:05)
[2020-05-24] MEDS ORDERED: Ondansetron ODT 4 MG TAB.RAPDIS SL PRN (17:45)
[2020-05-24 18:27] LABS: Basophils # 0.1 K/mcL (0.0-0.2); Basophils % 0.8 %; Eosinophils # 0.1 K/mcL (0.0-0.6); Eosinophils % 1.9 %; Hematocrit 35.3 % (35.3-44.9); Immature Granulocytes % 1.9 % (0-4); Lymphocytes # 0.8 K/mcL (0.6-4.6); Mean Corpuscular HGB Conc 31.2 g/dL (31.6-35.5); Mean Corpuscular Hemoglobin 33.1 pg (28.0-33.3); Mean Corpuscular Volume 106.3 fL (83.0-100.0); Mean Platelet Volume 9.1 fL (9.4-12.4); Monocytes # 0.7 K/mcL (0.0-1.3); Monocytes % 11.4 %; Neutrophils # 4.7 K/mcL (1.6-8.9); Platelet Count 224 K/mcL (140-400); Red Blood Count 3.32 M/mcL (3.82-4.97); Red Cell Distribution Width 13.3 % (11.5-14.5); White Blood Count 6.5 K/mcL (4.3-11.1)
[2020-05-24 18:47] LABS: Troponin I < 0.03 ng/mL (< 0.04)
[2020-05-24 18:48] LABS: Alanine Aminotransferase 29 Units/L (7-52); Albumin 3.5 g/dL (3.5-5.7); Albumin/Globulin Ratio 1.3 (1.1-2.2); Alkaline Phosphatase 94 Units/L (34-104); Aspartate Amino Transferase 18 Units/L (13-39); BUN/Creatinine Ratio 30 (6-26); Bilirubin,Total 0.5 mg/dL (0.3-1.0); Blood Urea Nitrogen 75 mg/dL (8-23); Calcium 9.2 mg/dL (8.6-10.3); Carbon Dioxide 24 mEq/L (23-29); Chloride 102 mEq/L (98-107); Globulin 2.7 g/dL (2.4-3.5); Glucose 211 mg/dL (70-105); Magnesium 1.7 mg/dL (1.6-2.6); Osmolality,Calculated 317 (280-300); Potassium 4.2 mEq/L (3.5-5.1); Sodium 139 mEq/L (136-145); Total Protein 6.2 g/dL (6.4-8.9); eGFR For African Americans 23 (> 60); eGFR For Non-African Americans 19 (> 60)
[2020-05-24] MEDS: Melatonin 3 MG TABLET PO SCH (19:59)
[2020-05-25] MEDS: Insulin DETEMIR 100 UNIT/ML X5UNITS SQ SCH ×2 (09:41→20:48)
[2020-05-25] MEDS: Insulin LISPRO 300 UNITS/3 ML VIAL SQ SCH ×4 (09:41→20:42)
[2020-05-25] MEDS: Furosemide 20 MG TABLET PO SCH (09:42)
[2020-05-25] MEDS: Cholecalciferol (D-3) 1,000 UNIT (25MCG) TABLET PO SCH (09:42)
[2020-05-25] MEDS: Multivit/Ca/Min/Fe/FA 1 TAB TABLET PO SCH (09:42)
[2020-05-25] MEDS: Metoprolol XL (24 HR) Succ 25 MG TAB.ER.24H PO SCH (09:43)
[2020-05-25] MEDS: *HR* SitaGLIPtin 25 MG TABLET PO SCH (09:43)
[2020-05-25] MEDS: Apixaban 5 MG TABLET PO SCH ×2 (09:43→20:42)
[2020-05-25] MEDS: Gabapentin 300 MG CAPSULE PO SCH ×2 (09:43→20:42)
[2020-05-25] MEDS: Acetaminophen 325 MG TABLET PO PRN (18:41)
[2020-05-25] MEDS: Melatonin 3 MG TABLET PO SCH (20:41)
[2020-05-26 07:50] VITALS: BP 112/74
[2020-05-26] MEDS: Insulin LISPRO 300 UNITS/3 ML VIAL SQ SCH (08:21)
[2020-05-26] MEDS: Furosemide 20 MG TABLET PO SCH (08:30)
[2020-05-26] MEDS: Apixaban 5 MG TABLET PO SCH (08:30)
[2020-05-26] MEDS: Cholecalciferol (D-3) 1,000 UNIT (25MCG) TABLET PO SCH (08:30)
[2020-05-26] MEDS: Metoprolol XL (24 HR) Succ 25 MG TAB.ER.24H PO SCH (08:30)
[2020-05-26] MEDS: Insulin DETEMIR 100 UNIT/ML X5UNITS SQ SCH (08:30)
[2020-05-26] MEDS: Gabapentin 300 MG CAPSULE PO SCH (08:30)
[2020-05-26] MEDS: Multivit/Ca/Min/Fe/FA 1 TAB TABLET PO SCH (08:31)
[2020-05-26] MEDS: *HR* SitaGLIPtin 25 MG TABLET PO SCH (08:31)
== END 2020-05-26 10:04 | disposition home health service (06) | DRG 945 ==
LOC: INPPIK 05-18 13:37
PROVIDERS: ADMIT Family Medicine; ATTEND Family Medicine

== ENCOUNTER 2021-01-16 16:00 | Inpatient (IN) ==
[2021-01-17] MEDS ORDERED: D5% in Water 1,000 ML IVC PRN (17:33)
[2021-01-17] MEDS ORDERED: *HR* Dextrose 50 % in Water (Vial) 50 ML VIAL IVP PRN (17:33)
[2021-01-17] MEDS ORDERED: Dextrose Gel 15 GM/37.5 ML TUBE PO PRN ×2 (17:33)
[2021-01-17] MEDS ORDERED: Insulin LISPRO 300 UNITS/3 ML VIAL SUBQ SCH (21:00)
[2021-01-17] MEDS: Sennosides/Docusate Sodium TABLET PO SCH (23:07)
[2021-01-17] MEDS: Acetaminophen 325 MG TABLET PO PRN (23:08)
[2021-01-18 07:31] LABS: INR 2.1; Prothrombin Time 24.2 Seconds (9.4-12.1)
[2021-01-18] MEDS: Gabapentin 300 MG CAPSULE PO SCH (09:13)
[2021-01-18] MEDS: Amoxicillin/Clavulanate 500 MG TABLET PO SCH ×3 (09:14→16:50)
[2021-01-18] MEDS: Ascorbic Acid 500 MG TABLET PO SCH (09:14)
[2021-01-18] MEDS: Metoprolol XL (24 HR) Succ 25 MG TAB.ER.24H PO SCH (09:14)
[2021-01-18] MEDS: *HR* SitaGLIPtin 25 MG TABLET PO SCH (09:15)
[2021-01-18] MEDS: Cholecalciferol (D-3) 1,000 UNIT (25MCG) TABLET PO SCH (09:15)
[2021-01-18] MEDS: Multivit/Ca/Min/Fe/FA 1 TAB TABLET PO SCH (09:15)
[2021-01-18] MEDS: Insulin LISPRO 300 UNITS/3 ML VIAL SUBQ SCH ×5 (09:15→21:58)
[2021-01-18] MEDS: Isosorbide MONOnitrate (24 HR) 30 MG TAB.ER.24H PO SCH (09:15)
[2021-01-18] MEDS ORDERED: Insulin LISPRO 300 UNITS/3 ML VIAL SUBQ ONE (12:27)
[2021-01-18 14:03] LABS: Hematocrit 35.5 % (35.3-44.9); Mean Corpuscular HGB Conc 33.8 g/dL (31.6-35.5); Mean Corpuscular Hemoglobin 33.2 pg (28.0-33.3); Mean Corpuscular Volume 98.3 fL (83.0-100.0); Mean Platelet Volume 10.7 fL (9.4-12.4); Platelet Count 176 K/mcL (140-400); Red Blood Count 3.61 M/mcL (3.82-4.97); Red Cell Distribution Width 11.9 % (11.5-14.5)
[2021-01-18 14:14] LABS: Calcium 9.7 mg/dL (8.6-10.3); Potassium 4.3 mEq/L (3.5-5.1)
[2021-01-18] MEDS: Acetaminophen 325 MG TABLET PO PRN (16:30)
[2021-01-18] MEDS: predniSONE 20 MG TABLET PO SCH (16:56)
[2021-01-18] MEDS: *HR* Warfarin 2 MG TABLET PO SCH (17:50)
[2021-01-18] MEDS: Sennosides/Docusate Sodium TABLET PO SCH (21:56)
[2021-01-18] MEDS: Insulin DETEMIR 100 UNIT/ML X5UNITS SUBQ SCH (21:57)
[2021-01-19] MEDS: predniSONE 20 MG TABLET PO SCH (08:30)
[2021-01-19] MEDS: Gabapentin 300 MG CAPSULE PO SCH (08:30)
[2021-01-19] MEDS: Cholecalciferol (D-3) 1,000 UNIT (25MCG) TABLET PO SCH (08:30)
[2021-01-19] MEDS: Isosorbide MONOnitrate (24 HR) 30 MG TAB.ER.24H PO SCH (08:30)
[2021-01-19] MEDS: Ascorbic Acid 500 MG TABLET PO SCH (08:31)
[2021-01-19] MEDS: Metoprolol XL (24 HR) Succ 25 MG TAB.ER.24H PO SCH (08:31)
[2021-01-19] MEDS: Multivit/Ca/Min/Fe/FA 1 TAB TABLET PO SCH (08:31)
[2021-01-19] MEDS: *HR* SitaGLIPtin 25 MG TABLET PO SCH (08:31)
[2021-01-19] MEDS: Insulin LISPRO 300 UNITS/3 ML VIAL SUBQ SCH ×7 (08:32→21:18)
[2021-01-19] MEDS: Insulin DETEMIR 100 UNIT/ML X5UNITS SUBQ SCH ×2 (08:35→21:19)
[2021-01-19] MEDS ORDERED: Insulin LISPRO 300 UNITS/3 ML VIAL SUBQ ONE ×3 (11:43→16:14)
[2021-01-19] MEDS: Acetaminophen 325 MG TABLET PO PRN (14:19)
[2021-01-19] MEDS: *HR* Warfarin 2 MG TABLET PO SCH (17:05)
[2021-01-19] MEDS: Sennosides/Docusate Sodium TABLET PO SCH (21:18)
[2021-01-20] MEDS: Ascorbic Acid 500 MG TABLET PO SCH (08:59)
[2021-01-20] MEDS: *HR* SitaGLIPtin 25 MG TABLET PO SCH (08:59)
[2021-01-20] MEDS: Multivit/Ca/Min/Fe/FA 1 TAB TABLET PO SCH (08:59)
[2021-01-20] MEDS: Isosorbide MONOnitrate (24 HR) 30 MG TAB.ER.24H PO SCH (08:59)
[2021-01-20] MEDS: Metoprolol XL (24 HR) Succ 25 MG TAB.ER.24H PO SCH (08:59)
[2021-01-20] MEDS: Cholecalciferol (D-3) 1,000 UNIT (25MCG) TABLET PO SCH (08:59)
[2021-01-20] MEDS: Gabapentin 300 MG CAPSULE PO SCH (09:00)
[2021-01-20] MEDS: predniSONE 20 MG TABLET PO SCH (09:00)
[2021-01-20] MEDS: Insulin LISPRO 300 UNITS/3 ML VIAL SUBQ SCH ×7 (09:00→20:45)
[2021-01-20] MEDS: Insulin DETEMIR 100 UNIT/ML X5UNITS SUBQ SCH ×2 (09:01→20:46)
[2021-01-20] MEDS: Acetaminophen 325 MG TABLET PO PRN (13:15)
[2021-01-20] MEDS: *HR* Warfarin 2 MG TABLET PO SCH (17:43)
[2021-01-20] MEDS: Sennosides/Docusate Sodium TABLET PO SCH (20:43)
[2021-01-20] MEDS: traZODone 50 MG TABLET PO PRN (20:44)
[2021-01-21] MEDS: Cholecalciferol (D-3) 1,000 UNIT (25MCG) TABLET PO SCH (08:31)
[2021-01-21] MEDS: Metoprolol XL (24 HR) Succ 25 MG TAB.ER.24H PO SCH (08:31)
[2021-01-21] MEDS: Gabapentin 300 MG CAPSULE PO SCH (08:32)
[2021-01-21] MEDS: Multivit/Ca/Min/Fe/FA 1 TAB TABLET PO SCH (08:32)
[2021-01-21] MEDS: Ascorbic Acid 500 MG TABLET PO SCH (08:32)
[2021-01-21] MEDS: *HR* SitaGLIPtin 25 MG TABLET PO SCH (08:32)
[2021-01-21] MEDS: Isosorbide MONOnitrate (24 HR) 30 MG TAB.ER.24H PO SCH (08:32)
[2021-01-21] MEDS: predniSONE 20 MG TABLET PO SCH (08:32)
[2021-01-21] MEDS: Insulin DETEMIR 100 UNIT/ML X5UNITS SUBQ SCH ×2 (08:33→22:02)
[2021-01-21] MEDS: Insulin LISPRO 300 UNITS/3 ML VIAL SUBQ SCH ×8 (08:33→22:02)
[2021-01-21] MEDS: *HR* Warfarin 2 MG TABLET PO SCH (17:20)
[2021-01-21] MEDS: Sennosides/Docusate Sodium TABLET PO SCH (22:01)
[2021-01-21] MEDS: traZODone 50 MG TABLET PO PRN (22:02)
[2021-01-22] MEDS: Gabapentin 300 MG CAPSULE PO SCH (07:55)
[2021-01-22] MEDS: Metoprolol XL (24 HR) Succ 25 MG TAB.ER.24H PO SCH (07:55)
[2021-01-22] MEDS: Cholecalciferol (D-3) 1,000 UNIT (25MCG) TABLET PO SCH (07:57)
[2021-01-22] MEDS: Multivit/Ca/Min/Fe/FA 1 TAB TABLET PO SCH (07:57)
[2021-01-22] MEDS: Isosorbide MONOnitrate (24 HR) 30 MG TAB.ER.24H PO SCH (07:57)
[2021-01-22] MEDS: Ascorbic Acid 500 MG TABLET PO SCH (07:57)
[2021-01-22] MEDS: predniSONE 20 MG TABLET PO SCH (07:58)
[2021-01-22] MEDS: *HR* SitaGLIPtin 25 MG TABLET PO SCH (07:59)
[2021-01-22] MEDS: Insulin DETEMIR 100 UNIT/ML X5UNITS SUBQ SCH ×2 (08:08→20:43)
[2021-01-22] MEDS: Insulin LISPRO 300 UNITS/3 ML VIAL SUBQ SCH ×7 (08:12→20:42)
[2021-01-22] MEDS: *HR* Warfarin 2 MG TABLET PO SCH (17:57)
[2021-01-22] MEDS: Sennosides/Docusate Sodium TABLET PO SCH (19:34)
[2021-01-22] MEDS: traZODone 50 MG TABLET PO PRN (19:35)
[2021-01-22] MEDS: Acetaminophen 325 MG TABLET PO PRN (19:39)
[2021-01-22] MEDS: cloNIDine HCL 0.1 MG TABLET PO PRN (20:41)
[2021-01-23 08:13] LABS: INR 1.9; Prothrombin Time 21.7 Seconds (9.4-12.1)
[2021-01-23] MEDS: Metoprolol XL (24 HR) Succ 25 MG TAB.ER.24H PO SCH (08:22)
[2021-01-23] MEDS: Ascorbic Acid 500 MG TABLET PO SCH (08:22)
[2021-01-23] MEDS: *HR* SitaGLIPtin 25 MG TABLET PO SCH (08:23)
[2021-01-23] MEDS: Isosorbide MONOnitrate (24 HR) 30 MG TAB.ER.24H PO SCH (08:23)
[2021-01-23] MEDS: Cholecalciferol (D-3) 1,000 UNIT (25MCG) TABLET PO SCH (08:23)
[2021-01-23] MEDS: Gabapentin 300 MG CAPSULE PO SCH (08:23)
[2021-01-23] MEDS: predniSONE 20 MG TABLET PO SCH (08:23)
[2021-01-23] MEDS: Multivit/Ca/Min/Fe/FA 1 TAB TABLET PO SCH (08:24)
[2021-01-23] MEDS: Insulin LISPRO 300 UNITS/3 ML VIAL SUBQ SCH ×7 (08:27→20:45)
[2021-01-23] MEDS: Insulin DETEMIR 100 UNIT/ML X5UNITS SUBQ SCH ×2 (08:28→20:44)
[2021-01-23] MEDS: *HR* Warfarin 2 MG TABLET PO SCH (17:12)
[2021-01-23] MEDS: Sennosides/Docusate Sodium TABLET PO SCH (20:44)
[2021-01-23] MEDS: traZODone 50 MG TABLET PO PRN (20:44)
[2021-01-24] MEDS: Acetaminophen 325 MG TABLET PO PRN ×2 (00:10→21:58)
[2021-01-24] MEDS: Insulin LISPRO 300 UNITS/3 ML VIAL SUBQ SCH ×7 (07:28→20:41)
[2021-01-24] MEDS: Cholecalciferol (D-3) 1,000 UNIT (25MCG) TABLET PO SCH (09:12)
[2021-01-24] MEDS: Isosorbide MONOnitrate (24 HR) 30 MG TAB.ER.24H PO SCH (09:12)
[2021-01-24] MEDS: predniSONE 20 MG TABLET PO SCH (09:12)
[2021-01-24] MEDS: Ascorbic Acid 500 MG TABLET PO SCH (09:13)
[2021-01-24] MEDS: Metoprolol XL (24 HR) Succ 25 MG TAB.ER.24H PO SCH (09:13)
[2021-01-24] MEDS: Gabapentin 300 MG CAPSULE PO SCH (09:13)
[2021-01-24] MEDS: *HR* SitaGLIPtin 25 MG TABLET PO SCH (09:13)
[2021-01-24] MEDS: Multivit/Ca/Min/Fe/FA 1 TAB TABLET PO SCH (09:13)
[2021-01-24] MEDS: Insulin DETEMIR 100 UNIT/ML X5UNITS SUBQ SCH ×2 (09:17→20:40)
[2021-01-24] MEDS: *HR* Warfarin 2 MG TABLET PO SCH (17:10)
[2021-01-24] MEDS: Sennosides/Docusate Sodium TABLET PO SCH (20:40)
[2021-01-24] MEDS: cloNIDine HCL 0.1 MG TABLET PO PRN (20:40)
[2021-01-25 06:38] LABS: INR 1.9; Prothrombin Time 21.9 Seconds (9.4-12.1)
[2021-01-25] MEDS: Insulin LISPRO 300 UNITS/3 ML VIAL SUBQ SCH ×7 (07:36→20:21)
[2021-01-25] MEDS: Ascorbic Acid 500 MG TABLET PO SCH (09:38)
[2021-01-25] MEDS: Cholecalciferol (D-3) 1,000 UNIT (25MCG) TABLET PO SCH (09:38)
[2021-01-25] MEDS: Isosorbide MONOnitrate (24 HR) 30 MG TAB.ER.24H PO SCH (09:39)
[2021-01-25] MEDS: *HR* SitaGLIPtin 25 MG TABLET PO SCH (09:39)
[2021-01-25] MEDS: Gabapentin 300 MG CAPSULE PO SCH (09:39)
[2021-01-25] MEDS: Metoprolol XL (24 HR) Succ 25 MG TAB.ER.24H PO SCH (09:39)
[2021-01-25] MEDS: Multivit/Ca/Min/Fe/FA 1 TAB TABLET PO SCH (09:40)
[2021-01-25] MEDS: predniSONE 20 MG TABLET PO SCH (09:41)
[2021-01-25] MEDS: Insulin DETEMIR 100 UNIT/ML X5UNITS SUBQ SCH ×2 (09:42→20:20)
[2021-01-25] MEDS: *HR* Warfarin 2 MG TABLET PO SCH (17:13)
[2021-01-25] MEDS: Sennosides/Docusate Sodium TABLET PO SCH (20:20)
[2021-01-25] MEDS: cloNIDine HCL 0.1 MG TABLET PO PRN (20:21)
[2021-01-25] MEDS: traZODone 50 MG TABLET PO PRN (20:21)
[2021-01-26] MEDS: Insulin LISPRO 300 UNITS/3 ML VIAL SUBQ SCH ×7 (07:28→19:55)
[2021-01-26 08:17] LABS: Basophils # 0.1 K/mcL (0.0-0.2); Basophils % 0.6 %; Eosinophils # 0.1 K/mcL (0.0-0.6); Eosinophils % 1.1 %; Hematocrit 34.5 % (35.3-44.9); Hemoglobin 11.4 g/dL (11.5-15.4); Immature Granulocytes % 2.3 % (0-4); Lymphocytes % 12.1 %; Mean Corpuscular Hemoglobin 33.3 pg (28.0-33.3); Mean Corpuscular Volume 100.9 fL (83.0-100.0); Mean Platelet Volume 9.1 fL (9.4-12.4); Monocytes # 0.8 K/mcL (0.0-1.3); Monocytes % 9.1 %; Neutrophils # 6.3 K/mcL (1.6-8.9); Platelet Count 250 K/mcL (140-400); Red Blood Count 3.42 M/mcL (3.82-4.97); Red Cell Distribution Width 12.4 % (11.5-14.5); Segmented Neutrophils % 74.8 %; White Blood Count 8.4 K/mcL (4.3-11.1)
[2021-01-26 08:23] LABS: Prothrombin Time 22.5 Seconds (9.4-12.1)
[2021-01-26 08:35] LABS: Calcium 8.4 mg/dL (8.6-10.3); Potassium 4.3 mEq/L (3.5-5.1)
[2021-01-26] MEDS: Isosorbide MONOnitrate (24 HR) 30 MG TAB.ER.24H PO SCH (09:07)
[2021-01-26] MEDS: Ascorbic Acid 500 MG TABLET PO SCH (09:08)
[2021-01-26] MEDS: Multivit/Ca/Min/Fe/FA 1 TAB TABLET PO SCH (09:08)
[2021-01-26] MEDS: predniSONE 20 MG TABLET PO SCH (09:08)
[2021-01-26] MEDS: Metoprolol XL (24 HR) Succ 25 MG TAB.ER.24H PO SCH (09:08)
[2021-01-26] MEDS: Gabapentin 300 MG CAPSULE PO SCH (09:08)
[2021-01-26] MEDS: Cholecalciferol (D-3) 1,000 UNIT (25MCG) TABLET PO SCH (09:08)
[2021-01-26] MEDS: *HR* SitaGLIPtin 25 MG TABLET PO SCH (09:08)
[2021-01-26] MEDS: Insulin DETEMIR 100 UNIT/ML X5UNITS SUBQ SCH ×2 (09:12→19:56)
[2021-01-26] MEDS: *HR* Warfarin 2 MG TABLET PO SCH (17:30)
[2021-01-26] MEDS: traZODone 50 MG TABLET PO PRN (19:54)
[2021-01-26] MEDS: Sennosides/Docusate Sodium TABLET PO SCH (19:54)
[2021-01-26] MEDS: Acetaminophen 325 MG TABLET PO PRN (23:52)
[2021-01-27] MEDS: Insulin LISPRO 300 UNITS/3 ML VIAL SUBQ SCH ×7 (07:27→19:55)
[2021-01-27] MEDS: Cholecalciferol (D-3) 1,000 UNIT (25MCG) TABLET PO SCH (07:29)
[2021-01-27] MEDS: Isosorbide MONOnitrate (24 HR) 30 MG TAB.ER.24H PO SCH (07:29)
[2021-01-27] MEDS: Metoprolol XL (24 HR) Succ 25 MG TAB.ER.24H PO SCH (07:29)
[2021-01-27] MEDS: *HR* SitaGLIPtin 25 MG TABLET PO SCH (07:29)
[2021-01-27] MEDS: Ascorbic Acid 500 MG TABLET PO SCH (07:29)
[2021-01-27] MEDS: predniSONE 20 MG TABLET PO SCH (07:30)
[2021-01-27] MEDS: Gabapentin 300 MG CAPSULE PO SCH (07:30)
[2021-01-27] MEDS: Multivit/Ca/Min/Fe/FA 1 TAB TABLET PO SCH (07:30)
[2021-01-27] MEDS: Insulin DETEMIR 100 UNIT/ML X5UNITS SUBQ SCH ×2 (08:24→20:15)
[2021-01-27] MEDS: *HR* Warfarin 2 MG TABLET PO SCH (17:53)
[2021-01-27] MEDS: Sennosides/Docusate Sodium TABLET PO SCH (20:15)
[2021-01-27] MEDS: traZODone 50 MG TABLET PO PRN (20:16)
[2021-01-28] MEDS: Insulin LISPRO 300 UNITS/3 ML VIAL SUBQ SCH ×5 (07:29→20:14)
[2021-01-28 08:05] LABS: Prothrombin Time 22.6 Seconds (9.4-12.1)
[2021-01-28] MEDS: *HR* SitaGLIPtin 25 MG TABLET PO SCH (08:23)
[2021-01-28] MEDS: Multivit/Ca/Min/Fe/FA 1 TAB TABLET PO SCH (08:23)
[2021-01-28] MEDS: Isosorbide MONOnitrate (24 HR) 30 MG TAB.ER.24H PO SCH (08:23)
[2021-01-28] MEDS: predniSONE 20 MG TABLET PO SCH (08:23)
[2021-01-28] MEDS: Cholecalciferol (D-3) 1,000 UNIT (25MCG) TABLET PO SCH (08:23)
[2021-01-28] MEDS: Gabapentin 300 MG CAPSULE PO SCH (08:24)
[2021-01-28] MEDS: Metoprolol XL (24 HR) Succ 25 MG TAB.ER.24H PO SCH (08:24)
[2021-01-28] MEDS: Ascorbic Acid 500 MG TABLET PO SCH (08:24)
[2021-01-28 08:39] LABS: Calcium 9.4 mg/dL (8.6-10.3); Potassium 4.6 mEq/L (3.5-5.1)
[2021-01-28] MEDS ORDERED: 0.9 % Sodium Chloride 1,000 ML IVC SCH (09:15)
[2021-01-28] MEDS: Insulin DETEMIR 100 UNIT/ML X5UNITS SUBQ SCH ×3 (10:08→20:14)
[2021-01-28] MEDS: *HR* Warfarin 2 MG TABLET PO SCH (17:58)
[2021-01-28] MEDS: traZODone 50 MG TABLET PO PRN (20:13)
[2021-01-28] MEDS: Sennosides/Docusate Sodium TABLET PO SCH (20:13)
[2021-01-28] MEDS: 0.9 % Sodium Chloride 1,000 ML IVC SCH (20:20)
[2021-01-29] MEDS: Acetaminophen 325 MG TABLET PO PRN (03:13)
[2021-01-29 07:56] LABS: INR 2.1; Prothrombin Time 24.1 Seconds (9.4-12.1)
[2021-01-29] MEDS: Insulin LISPRO 300 UNITS/3 ML VIAL SUBQ SCH ×4 (08:18→22:12)
[2021-01-29] MEDS: Cholecalciferol (D-3) 1,000 UNIT (25MCG) TABLET PO SCH (08:27)
[2021-01-29] MEDS: Gabapentin 300 MG CAPSULE PO SCH (08:27)
[2021-01-29] MEDS: Ascorbic Acid 500 MG TABLET PO SCH (08:27)
[2021-01-29] MEDS: *HR* SitaGLIPtin 25 MG TABLET PO SCH (08:27)
[2021-01-29] MEDS: Multivit/Ca/Min/Fe/FA 1 TAB TABLET PO SCH (08:27)
[2021-01-29] MEDS: Metoprolol XL (24 HR) Succ 25 MG TAB.ER.24H PO SCH (08:27)
[2021-01-29] MEDS: predniSONE 10 MG TABLET PO SCH (08:28)
[2021-01-29] MEDS: Isosorbide MONOnitrate (24 HR) 30 MG TAB.ER.24H PO SCH (08:28)
[2021-01-29] MEDS: Insulin DETEMIR 100 UNIT/ML X5UNITS SUBQ SCH ×2 (08:35→22:12)
[2021-01-29] MEDS: *HR* Warfarin 2 MG TABLET PO SCH (16:44)
[2021-01-29] MEDS: 0.9 % Sodium Chloride 1,000 ML IVC SCH (16:44)
[2021-01-29] MEDS: Sennosides/Docusate Sodium TABLET PO SCH (19:51)
[2021-01-30] MEDS: Acetaminophen 325 MG TABLET PO PRN (02:43)
[2021-01-30] MEDS: Insulin LISPRO 300 UNITS/3 ML VIAL SUBQ SCH ×4 (07:36→19:53)
[2021-01-30 07:38] LABS: Basophils # 0.1 K/mcL (0.0-0.2); Basophils % 0.7 %; Eosinophils # 0.2 K/mcL (0.0-0.6); Eosinophils % 1.9 %; Hematocrit 36.9 % (35.3-44.9); Hemoglobin 11.9 g/dL (11.5-15.4); Immature Granulocytes % 2.4 % (0-4); Lymphocytes # 1.3 K/mcL (0.6-4.6); Lymphocytes % 15.9 %; Mean Corpuscular HGB Conc 32.2 g/dL (31.6-35.5); Mean Corpuscular Hemoglobin 32.9 pg (28.0-33.3); Mean Corpuscular Volume 101.9 fL (83.0-100.0); Mean Platelet Volume 9.3 fL (9.4-12.4); Monocytes # 0.8 K/mcL (0.0-1.3); Monocytes % 9.7 %; Neutrophils # 5.6 K/mcL (1.6-8.9); Platelet Count 226 K/mcL (140-400); Red Blood Count 3.62 M/mcL (3.82-4.97); Red Cell Distribution Width 13.2 % (11.5-14.5); Segmented Neutrophils % 69.4 %; White Blood Count 8.1 K/mcL (4.3-11.1)
[2021-01-30 07:43] LABS: INR 2.1; Prothrombin Time 24.1 Seconds (9.4-12.1)
[2021-01-30 07:51] LABS: Calcium 8.6 mg/dL (8.6-10.3); Potassium 4.3 mEq/L (3.5-5.1)
[2021-01-30] MEDS: *HR* SitaGLIPtin 25 MG TABLET PO SCH (09:11)
[2021-01-30] MEDS: predniSONE 10 MG TABLET PO SCH (09:11)
[2021-01-30] MEDS: Multivit/Ca/Min/Fe/FA 1 TAB TABLET PO SCH (09:12)
[2021-01-30] MEDS: Gabapentin 300 MG CAPSULE PO SCH (09:12)
[2021-01-30] MEDS: Cholecalciferol (D-3) 1,000 UNIT (25MCG) TABLET PO SCH (09:12)
[2021-01-30] MEDS: Isosorbide MONOnitrate (24 HR) 30 MG TAB.ER.24H PO SCH (09:12)
[2021-01-30] MEDS: Ascorbic Acid 500 MG TABLET PO SCH (09:12)
[2021-01-30] MEDS: Insulin DETEMIR 100 UNIT/ML X5UNITS SUBQ SCH ×2 (09:14→19:54)
[2021-01-30] MEDS: Metoprolol XL (24 HR) Succ 25 MG TAB.ER.24H PO SCH (09:14)
[2021-01-30] MEDS: Furosemide 40 MG TABLET PO SCH (14:39)
[2021-01-30] MEDS: *HR* Warfarin 2 MG TABLET PO SCH (17:20)
[2021-01-30] MEDS: cloNIDine HCL 0.1 MG TABLET PO PRN (19:01)
[2021-01-30] MEDS: traZODone 50 MG TABLET PO PRN (19:51)
[2021-01-30] MEDS: Sennosides/Docusate Sodium TABLET PO SCH (19:51)
[2021-01-31] MEDS: Cholecalciferol (D-3) 1,000 UNIT (25MCG) TABLET PO SCH (07:51)
[2021-01-31] MEDS: Furosemide 40 MG TABLET PO SCH (07:52)
[2021-01-31] MEDS: Isosorbide MONOnitrate (24 HR) 30 MG TAB.ER.24H PO SCH (07:52)
[2021-01-31] MEDS: Metoprolol XL (24 HR) Succ 25 MG TAB.ER.24H PO SCH (07:52)
[2021-01-31] MEDS: Gabapentin 300 MG CAPSULE PO SCH (07:52)
[2021-01-31] MEDS: Ascorbic Acid 500 MG TABLET PO SCH (07:52)
[2021-01-31] MEDS: *HR* SitaGLIPtin 25 MG TABLET PO SCH (07:52)
[2021-01-31] MEDS: Multivit/Ca/Min/Fe/FA 1 TAB TABLET PO SCH (07:52)
[2021-01-31] MEDS: predniSONE 10 MG TABLET PO SCH (07:53)
[2021-01-31] MEDS: Insulin LISPRO 300 UNITS/3 ML VIAL SUBQ SCH ×4 (07:53→20:40)
[2021-01-31] MEDS: Insulin DETEMIR 100 UNIT/ML X5UNITS SUBQ SCH ×2 (08:07→20:39)
[2021-01-31 08:50] LABS: Prothrombin Time 22.8 Seconds (9.4-12.1)
[2021-01-31] MEDS: *HR* Warfarin 2 MG TABLET PO SCH (17:20)
[2021-01-31] MEDS: traZODone 50 MG TABLET PO PRN (20:39)
[2021-01-31] MEDS: Sennosides/Docusate Sodium TABLET PO SCH (20:39)
[2021-01-31] MEDS: Acetaminophen 325 MG TABLET PO PRN (23:38)
[2021-02-01 05:50] LABS: INR 1.9; Prothrombin Time 21.7 Seconds (9.4-12.1)
[2021-02-01] MEDS: Insulin LISPRO 300 UNITS/3 ML VIAL SUBQ SCH ×4 (07:21→19:53)
[2021-02-01] MEDS: Gabapentin 300 MG CAPSULE PO SCH (09:03)
[2021-02-01] MEDS: Ascorbic Acid 500 MG TABLET PO SCH (09:03)
[2021-02-01] MEDS: predniSONE 10 MG TABLET PO SCH (09:03)
[2021-02-01] MEDS: Multivit/Ca/Min/Fe/FA 1 TAB TABLET PO SCH (09:03)
[2021-02-01] MEDS: Isosorbide MONOnitrate (24 HR) 30 MG TAB.ER.24H PO SCH (09:03)
[2021-02-01] MEDS: *HR* SitaGLIPtin 25 MG TABLET PO SCH (09:03)
[2021-02-01] MEDS: Cholecalciferol (D-3) 1,000 UNIT (25MCG) TABLET PO SCH (09:03)
[2021-02-01] MEDS: Metoprolol XL (24 HR) Succ 25 MG TAB.ER.24H PO SCH (09:04)
[2021-02-01] MEDS: Furosemide 40 MG TABLET PO SCH (09:04)
[2021-02-01] MEDS: Insulin DETEMIR 100 UNIT/ML X5UNITS SUBQ SCH ×2 (09:04→19:53)
[2021-02-01] MEDS: Acetaminophen 325 MG TABLET PO PRN ×2 (16:53→23:58)
[2021-02-01] MEDS: *HR* Warfarin 2 MG TABLET PO SCH (16:53)
[2021-02-01] MEDS: Trolamine Salicylate/Aloe Vera 85 APPL/85 GM TUBE TP PRN (19:52)
[2021-02-01] MEDS: traZODone 50 MG TABLET PO PRN (19:54)
[2021-02-01] MEDS: Sennosides/Docusate Sodium TABLET PO SCH (19:54)
[2021-02-02 06:17] LABS: Hematocrit 34.3 % (35.3-44.9); Hemoglobin 11.2 g/dL (11.5-15.4); Mean Corpuscular HGB Conc 32.7 g/dL (31.6-35.5); Mean Corpuscular Volume 101.2 fL (83.0-100.0); Mean Platelet Volume 10.2 fL (9.4-12.4); Platelet Count 216 K/mcL (140-400); Red Blood Count 3.39 M/mcL (3.82-4.97); Red Cell Distribution Width 13.1 % (11.5-14.5); White Blood Count 7.9 K/mcL (4.3-11.1)
[2021-02-02 06:22] LABS: Prothrombin Time 22.3 Seconds (9.4-12.1)
[2021-02-02 06:29] LABS: Calcium 8.7 mg/dL (8.6-10.3); Potassium 3.8 mEq/L (3.5-5.1)
[2021-02-02] MEDS: Isosorbide MONOnitrate (24 HR) 30 MG TAB.ER.24H PO SCH (08:31)
[2021-02-02] MEDS: Insulin LISPRO 300 UNITS/3 ML VIAL SUBQ SCH (08:31)
[2021-02-02] MEDS: Cholecalciferol (D-3) 1,000 UNIT (25MCG) TABLET PO SCH (08:32)
[2021-02-02] MEDS: Gabapentin 300 MG CAPSULE PO SCH (08:32)
[2021-02-02] MEDS: predniSONE 10 MG TABLET PO SCH (08:32)
[2021-02-02] MEDS: Metoprolol XL (24 HR) Succ 25 MG TAB.ER.24H PO SCH (08:32)
[2021-02-02] MEDS: Ascorbic Acid 500 MG TABLET PO SCH (08:32)
[2021-02-02] MEDS: Multivit/Ca/Min/Fe/FA 1 TAB TABLET PO SCH (08:33)
[2021-02-02] MEDS: *HR* SitaGLIPtin 25 MG TABLET PO SCH (08:33)
[2021-02-02] MEDS: Insulin DETEMIR 100 UNIT/ML X5UNITS SUBQ SCH ×2 (08:33→21:30)
[2021-02-02] MEDS: Trolamine Salicylate/Aloe Vera 85 APPL/85 GM TUBE TP PRN (08:41)
[2021-02-02] MEDS: Acetaminophen 325 MG TABLET PO PRN ×2 (14:54→21:29)
[2021-02-02] MEDS: *HR* Warfarin 2 MG TABLET PO SCH (17:44)
[2021-02-02] MEDS: Sennosides/Docusate Sodium TABLET PO SCH (21:29)
[2021-02-02] MEDS: traZODone 50 MG TABLET PO PRN (21:29)
[2021-02-03 06:42] VITALS: BP 150/66
[2021-02-03 06:52] LABS: Calcium 9.1 mg/dL (8.6-10.3); Potassium 3.9 mEq/L (3.5-5.1)
[2021-02-03] MEDS: Acetaminophen 325 MG TABLET PO PRN (08:04)
[2021-02-03] MEDS: predniSONE 10 MG TABLET PO SCH (08:04)
[2021-02-03] MEDS: Gabapentin 300 MG CAPSULE PO SCH (08:04)
[2021-02-03] MEDS: Isosorbide MONOnitrate (24 HR) 30 MG TAB.ER.24H PO SCH (08:04)
[2021-02-03] MEDS: Cholecalciferol (D-3) 1,000 UNIT (25MCG) TABLET PO SCH (08:04)
[2021-02-03] MEDS: *HR* SitaGLIPtin 25 MG TABLET PO SCH (08:04)
[2021-02-03] MEDS: Metoprolol XL (24 HR) Succ 25 MG TAB.ER.24H PO SCH (08:04)
[2021-02-03] MEDS: Ascorbic Acid 500 MG TABLET PO SCH (08:05)
[2021-02-03] MEDS: Multivit/Ca/Min/Fe/FA 1 TAB TABLET PO SCH (08:05)
[2021-02-03] MEDS: Insulin DETEMIR 100 UNIT/ML X5UNITS SUBQ SCH (08:36)
== END 2021-02-03 09:55 | disposition home health service (06) | DRG 945 ==
LOC: INPPIK 01-17 21:36
PROVIDERS: ADMIT Family Medicine; ATTEND Family Medicine

== ENCOUNTER 2021-04-27 14:08 | Inpatient (IN) ==
[2021-04-27] MEDS ORDERED: Dextrose Gel 15 GM/37.5 ML TUBE PO PRN ×2 (16:48)
[2021-04-27] MEDS ORDERED: *HR* Dextrose 50 % in Water (Syg) 50 ML SYRINGE IVP PRN (16:48)
[2021-04-27] MEDS ORDERED: D5% in Water 1,000 ML IVC PRN (16:48)
[2021-04-27] MEDS: Insulin LISPRO 300 UNITS/3 ML VIAL SUBQ SCH ×2 (19:23→21:16)
[2021-04-27] MEDS ORDERED: Insulin DETEMIR 100 UNIT/ML per UNIT SUBQ ONE (21:00)
[2021-04-27] MEDS: Apixaban 5 MG TABLET PO SCH (21:13)
[2021-04-28] MEDS: *HR* HYDROcodone/Acet 5/325 mg TABLET PO PRN ×2 (00:30→09:52)
[2021-04-28] MEDS: Apixaban 5 MG TABLET PO SCH ×2 (05:43→16:52)
[2021-04-28 06:56] LABS: Basophils % 0.6 %; Eosinophils # 0.2 K/mcL (0.0-0.6); Eosinophils % 4.6 %; Hematocrit 35.3 % (35.3-44.9); Hemoglobin 11.6 g/dL (11.5-15.4); Immature Granulocytes % 1.9 % (0-4); Lymphocytes # 0.8 K/mcL (0.6-4.6); Lymphocytes % 16.3 %; Mean Corpuscular HGB Conc 32.9 g/dL (31.6-35.5); Mean Corpuscular Hemoglobin 32.6 pg (28.0-33.3); Mean Corpuscular Volume 99.2 fL (83.0-100.0); Monocytes # 0.6 K/mcL (0.0-1.3); Monocytes % 12.1 %; Neutrophils # 3.1 K/mcL (1.6-8.9); Platelet Count 288 K/mcL (140-400); Red Blood Count 3.56 M/mcL (3.82-4.97); Red Cell Distribution Width 12.8 % (11.5-14.5); Segmented Neutrophils % 64.5 %; White Blood Count 4.8 K/mcL (4.3-11.1)
[2021-04-28 07:34] LABS: Calcium 9.3 mg/dL (8.6-10.3); Potassium 4.3 mEq/L (3.5-5.1)
[2021-04-28] MEDS: Cholecalciferol (D-3) 1,000 UNIT (25MCG) TABLET PO SCH (08:45)
[2021-04-28] MEDS: Metoprolol XL (24 HR) Succ 25 MG TAB.ER.24H PO SCH (08:45)
[2021-04-28] MEDS: Isosorbide MONOnitrate (24 HR) 30 MG TAB.ER.24H PO SCH (08:45)
[2021-04-28] MEDS: Ascorbic Acid 500 MG TABLET PO SCH (08:45)
[2021-04-28] MEDS: Multivit/Ca/Min/Fe/FA 1 TAB TABLET PO SCH (08:46)
[2021-04-28] MEDS: Gabapentin 300 MG CAPSULE PO SCH (08:46)
[2021-04-28] MEDS: Insulin LISPRO 300 UNITS/3 ML VIAL SUBQ SCH ×7 (08:47→21:48)
[2021-04-28] MEDS: Insulin DETEMIR 100 UNIT/ML X5UNITS SUBQ SCH ×2 (09:52→21:47)
[2021-04-28] MEDS: Acetaminophen 325 MG TABLET PO PRN (21:46)
[2021-04-28] MEDS: Melatonin 3 MG TABLET PO SCH (21:48)
[2021-04-28] MEDS: Budesonide/Formoterol 160/4.5 1 PUFF INH IH SCH (21:58)
[2021-04-29] MEDS: Apixaban 5 MG TABLET PO SCH ×2 (05:05→17:31)
[2021-04-29] MEDS: Insulin LISPRO 300 UNITS/3 ML VIAL SUBQ SCH ×7 (09:19→19:53)
[2021-04-29] MEDS: Insulin DETEMIR 100 UNIT/ML X5UNITS SUBQ SCH ×2 (09:26→19:53)
[2021-04-29] MEDS: Ascorbic Acid 500 MG TABLET PO SCH (09:27)
[2021-04-29] MEDS: Metoprolol XL (24 HR) Succ 25 MG TAB.ER.24H PO SCH (09:27)
[2021-04-29] MEDS: Isosorbide MONOnitrate (24 HR) 30 MG TAB.ER.24H PO SCH (09:27)
[2021-04-29] MEDS: Multivit/Ca/Min/Fe/FA 1 TAB TABLET PO SCH (09:27)
[2021-04-29] MEDS: *HR* HYDROcodone/Acet 5/325 mg TABLET PO PRN ×2 (09:27→19:52)
[2021-04-29] MEDS: Cholecalciferol (D-3) 1,000 UNIT (25MCG) TABLET PO SCH (09:27)
[2021-04-29] MEDS: Gabapentin 300 MG CAPSULE PO SCH (09:27)
[2021-04-29] MEDS: Acetaminophen 325 MG TABLET PO PRN (10:41)
[2021-04-29] MEDS: Budesonide/Formoterol 160/4.5 1 PUFF INH IH SCH ×2 (10:42→20:59)
[2021-04-29] MEDS: Melatonin 3 MG TABLET PO SCH (19:52)
[2021-04-30] MEDS: Apixaban 5 MG TABLET PO SCH ×2 (06:16→16:36)
[2021-04-30] MEDS: *HR* HYDROcodone/Acet 5/325 mg TABLET PO PRN (06:16)
[2021-04-30] MEDS: Insulin LISPRO 300 UNITS/3 ML VIAL SUBQ SCH ×7 (09:00→20:14)
[2021-04-30] MEDS: Metoprolol XL (24 HR) Succ 25 MG TAB.ER.24H PO SCH (09:05)
[2021-04-30] MEDS: Isosorbide MONOnitrate (24 HR) 30 MG TAB.ER.24H PO SCH (09:05)
[2021-04-30] MEDS: Multivit/Ca/Min/Fe/FA 1 TAB TABLET PO SCH (09:05)
[2021-04-30] MEDS: Cholecalciferol (D-3) 1,000 UNIT (25MCG) TABLET PO SCH (09:05)
[2021-04-30] MEDS: Ascorbic Acid 500 MG TABLET PO SCH (09:05)
[2021-04-30] MEDS: Gabapentin 300 MG CAPSULE PO SCH (09:06)
[2021-04-30] MEDS: Insulin DETEMIR 100 UNIT/ML X5UNITS SUBQ SCH ×2 (09:06→20:13)
[2021-04-30] MEDS: Budesonide/Formoterol 160/4.5 1 PUFF INH IH SCH ×2 (11:00→22:48)
[2021-04-30] MEDS: Acetaminophen 325 MG TABLET PO PRN ×2 (12:32→21:52)
[2021-04-30] MEDS: Nystatin POWDER 30 GM BOTTLE TP SCH ×2 (12:33→20:14)
[2021-04-30] MEDS: Sennosides/Docusate Sodium TABLET PO SCH (20:13)
[2021-04-30] MEDS: Melatonin 3 MG TABLET PO SCH (20:13)
[2021-05-01] MEDS: *HR* HYDROcodone/Acet 5/325 mg TABLET PO PRN ×2 (03:46→14:37)
[2021-05-01] MEDS: Apixaban 5 MG TABLET PO SCH ×2 (06:20→17:19)
[2021-05-01] MEDS: Insulin LISPRO 300 UNITS/3 ML VIAL SUBQ SCH ×7 (07:49→19:52)
[2021-05-01] MEDS: Sennosides/Docusate Sodium TABLET PO SCH ×2 (08:17→19:54)
[2021-05-01] MEDS: Cholecalciferol (D-3) 1,000 UNIT (25MCG) TABLET PO SCH (08:17)
[2021-05-01] MEDS: Isosorbide MONOnitrate (24 HR) 30 MG TAB.ER.24H PO SCH (08:17)
[2021-05-01] MEDS: Multivit/Ca/Min/Fe/FA 1 TAB TABLET PO SCH (08:17)
[2021-05-01] MEDS: Ascorbic Acid 500 MG TABLET PO SCH (08:17)
[2021-05-01] MEDS: Gabapentin 300 MG CAPSULE PO SCH (08:17)
[2021-05-01] MEDS: Metoprolol XL (24 HR) Succ 25 MG TAB.ER.24H PO SCH (08:18)
[2021-05-01] MEDS: Nystatin POWDER 30 GM BOTTLE TP SCH ×2 (08:19→19:55)
[2021-05-01] MEDS: Insulin DETEMIR 100 UNIT/ML X5UNITS SUBQ SCH ×2 (08:34→19:56)
[2021-05-01] MEDS: Budesonide/Formoterol 160/4.5 1 PUFF INH IH SCH ×2 (09:36→21:34)
[2021-05-01] MEDS: Melatonin 3 MG TABLET PO SCH (19:53)
[2021-05-01] MEDS: Acetaminophen 325 MG TABLET PO PRN (19:54)
[2021-05-02] MEDS: *HR* HYDROcodone/Acet 5/325 mg TABLET PO PRN ×2 (02:11→14:08)
[2021-05-02] MEDS: Apixaban 5 MG TABLET PO SCH ×2 (05:23→17:58)
[2021-05-02] MEDS: Insulin LISPRO 300 UNITS/3 ML VIAL SUBQ SCH ×7 (08:15→21:55)
[2021-05-02 08:18] LABS: Calcium 9.7 mg/dL (8.6-10.3); Potassium 4.4 mEq/L (3.5-5.1)
[2021-05-02] MEDS: Isosorbide MONOnitrate (24 HR) 30 MG TAB.ER.24H PO SCH (08:29)
[2021-05-02] MEDS: Cholecalciferol (D-3) 1,000 UNIT (25MCG) TABLET PO SCH (08:30)
[2021-05-02] MEDS: Ascorbic Acid 500 MG TABLET PO SCH (08:30)
[2021-05-02] MEDS: Metoprolol XL (24 HR) Succ 25 MG TAB.ER.24H PO SCH (08:30)
[2021-05-02] MEDS: Multivit/Ca/Min/Fe/FA 1 TAB TABLET PO SCH (08:31)
[2021-05-02] MEDS: Insulin DETEMIR 100 UNIT/ML X5UNITS SUBQ SCH ×2 (08:31→21:57)
[2021-05-02] MEDS: Sennosides/Docusate Sodium TABLET PO SCH ×2 (08:31→21:54)
[2021-05-02] MEDS: Gabapentin 300 MG CAPSULE PO SCH (08:31)
[2021-05-02] MEDS: Acetaminophen 325 MG TABLET PO PRN (09:41)
[2021-05-02] MEDS: Nystatin POWDER 30 GM BOTTLE TP SCH ×2 (09:42→21:59)
[2021-05-02] MEDS: Budesonide/Formoterol 160/4.5 1 PUFF INH IH SCH ×2 (10:12→22:00)
[2021-05-02] MEDS: polyethylene glycoL 3350 17 GM POWD.PACK PO SCH (12:17)
[2021-05-02] MEDS: Ondansetron ODT 4 MG TAB.RAPDIS SL PRN (20:23)
[2021-05-02] MEDS: Melatonin 3 MG TABLET PO SCH (21:54)
[2021-05-03] MEDS: Apixaban 5 MG TABLET PO SCH ×2 (07:52→17:42)
[2021-05-03] MEDS: Insulin LISPRO 300 UNITS/3 ML VIAL SUBQ SCH ×7 (08:00→20:00)
[2021-05-03] MEDS: Metoprolol XL (24 HR) Succ 25 MG TAB.ER.24H PO SCH (08:23)
[2021-05-03] MEDS: Isosorbide MONOnitrate (24 HR) 30 MG TAB.ER.24H PO SCH (08:23)
[2021-05-03] MEDS: Sennosides/Docusate Sodium TABLET PO SCH ×2 (08:23→20:01)
[2021-05-03] MEDS: polyethylene glycoL 3350 17 GM POWD.PACK PO SCH (08:24)
[2021-05-03] MEDS: *HR* HYDROcodone/Acet 5/325 mg TABLET PO PRN ×2 (08:24→20:00)
[2021-05-03] MEDS: Gabapentin 300 MG CAPSULE PO SCH (08:24)
[2021-05-03] MEDS: Cholecalciferol (D-3) 1,000 UNIT (25MCG) TABLET PO SCH (08:24)
[2021-05-03] MEDS: Ascorbic Acid 500 MG TABLET PO SCH (08:24)
[2021-05-03] MEDS: Multivit/Ca/Min/Fe/FA 1 TAB TABLET PO SCH (08:24)
[2021-05-03] MEDS: Nystatin POWDER 30 GM BOTTLE TP SCH ×2 (08:27→20:02)
[2021-05-03] MEDS: Insulin DETEMIR 100 UNIT/ML X5UNITS SUBQ SCH ×2 (08:27→19:59)
[2021-05-03] MEDS: Budesonide/Formoterol 160/4.5 1 PUFF INH IH SCH ×2 (09:47→22:04)
[2021-05-03] MEDS: Melatonin 3 MG TABLET PO SCH (20:01)
[2021-05-04] MEDS: Apixaban 5 MG TABLET PO SCH ×2 (05:32→17:54)
[2021-05-04] MEDS: Budesonide/Formoterol 160/4.5 1 PUFF INH IH SCH (11:07)
[2021-05-04] MEDS: Insulin LISPRO 300 UNITS/3 ML VIAL SUBQ SCH ×5 (12:43→21:03)
[2021-05-04] MEDS: *HR* HYDROcodone/Acet 5/325 mg TABLET PO PRN ×2 (13:48→20:47)
[2021-05-04] MEDS ORDERED: *HR* HYDROcodone/Acet 7.5/325 mg TABLET PO PRN (14:04)
[2021-05-04] MEDS: Sennosides/Docusate Sodium TABLET PO SCH (20:47)
[2021-05-04] MEDS: Methyl Salicylate/Menthol 57 APPL/57 GM TUBE TP PRN (20:47)
[2021-05-04] MEDS: Melatonin 3 MG TABLET PO SCH (20:47)
[2021-05-04] MEDS: Nystatin POWDER 30 GM BOTTLE TP SCH (20:49)
[2021-05-05] MEDS: Budesonide/Formoterol 160/4.5 1 PUFF INH IH SCH ×3 (00:45→21:17)
[2021-05-05] MEDS: *HR* HYDROcodone/Acet 5/325 mg TABLET PO PRN ×2 (04:40→11:13)
[2021-05-05] MEDS: Apixaban 5 MG TABLET PO SCH ×2 (06:19→17:07)
[2021-05-05] MEDS: Insulin LISPRO 300 UNITS/3 ML VIAL SUBQ SCH ×7 (07:26→21:28)
[2021-05-05] MEDS: Isosorbide MONOnitrate (24 HR) 30 MG TAB.ER.24H PO SCH (08:32)
[2021-05-05] MEDS: Sennosides/Docusate Sodium TABLET PO SCH ×2 (08:33→21:29)
[2021-05-05] MEDS: Metoprolol XL (24 HR) Succ 25 MG TAB.ER.24H PO SCH (08:33)
[2021-05-05] MEDS: Gabapentin 300 MG CAPSULE PO SCH (08:33)
[2021-05-05] MEDS: Multivit/Ca/Min/Fe/FA 1 TAB TABLET PO SCH (08:33)
[2021-05-05] MEDS: Nystatin POWDER 30 GM BOTTLE TP SCH ×2 (08:34→21:25)
[2021-05-05] MEDS: Ascorbic Acid 500 MG TABLET PO SCH (08:34)
[2021-05-05] MEDS: Cholecalciferol (D-3) 1,000 UNIT (25MCG) TABLET PO SCH (08:34)
[2021-05-05] MEDS: polyethylene glycoL 3350 17 GM POWD.PACK PO SCH (08:34)
[2021-05-05] MEDS: Insulin DETEMIR 100 UNIT/ML X5UNITS SUBQ SCH (08:35)
[2021-05-05] MEDS: Melatonin 3 MG TABLET PO SCH (21:23)
[2021-05-06] MEDS: Apixaban 5 MG TABLET PO SCH ×2 (06:05→17:29)
[2021-05-06] MEDS: Ascorbic Acid 500 MG TABLET PO SCH (08:26)
[2021-05-06] MEDS: polyethylene glycoL 3350 17 GM POWD.PACK PO SCH (08:26)
[2021-05-06] MEDS: Isosorbide MONOnitrate (24 HR) 30 MG TAB.ER.24H PO SCH (08:26)
[2021-05-06] MEDS: Multivit/Ca/Min/Fe/FA 1 TAB TABLET PO SCH (08:26)
[2021-05-06] MEDS: Sennosides/Docusate Sodium TABLET PO SCH ×2 (08:27→20:12)
[2021-05-06] MEDS: Nystatin POWDER 30 GM BOTTLE TP SCH ×2 (08:27→20:12)
[2021-05-06] MEDS: Metoprolol XL (24 HR) Succ 25 MG TAB.ER.24H PO SCH (08:27)
[2021-05-06] MEDS: Cholecalciferol (D-3) 1,000 UNIT (25MCG) TABLET PO SCH (08:27)
[2021-05-06] MEDS: Gabapentin 300 MG CAPSULE PO SCH (08:27)
[2021-05-06] MEDS: *HR* HYDROcodone/Acet 5/325 mg TABLET PO PRN (08:40)
[2021-05-06] MEDS: Insulin LISPRO 300 UNITS/3 ML VIAL SUBQ SCH ×7 (08:42→20:20)
[2021-05-06] MEDS: Insulin DETEMIR 100 UNIT/ML X5UNITS SUBQ SCH (08:42)
[2021-05-06] MEDS: Budesonide/Formoterol 160/4.5 1 PUFF INH IH SCH ×2 (08:57→22:02)
[2021-05-06 11:59] LABS: Basophils % 0.8 %; Eosinophils # 0.2 K/mcL (0.0-0.6); Eosinophils % 3.1 %; Hematocrit 36.3 % (35.3-44.9); Immature Granulocytes % 0.4 % (0-4); Lymphocytes # 0.6 K/mcL (0.6-4.6); Lymphocytes % 12.2 %; Mean Corpuscular HGB Conc 33.1 g/dL (31.6-35.5); Mean Corpuscular Hemoglobin 33.1 pg (28.0-33.3); Mean Corpuscular Volume 100.3 fL (83.0-100.0); Mean Platelet Volume 9.2 fL (9.4-12.4); Monocytes # 0.6 K/mcL (0.0-1.3); Monocytes % 11.6 %; Neutrophils # 3.7 K/mcL (1.6-8.9); Platelet Count 207 K/mcL (140-400); Red Blood Count 3.62 M/mcL (3.82-4.97); Red Cell Distribution Width 13.2 % (11.5-14.5); Segmented Neutrophils % 71.9 %; White Blood Count 5.2 K/mcL (4.3-11.1)
[2021-05-06 12:17] LABS: Calcium 9.7 mg/dL (8.6-10.3); Potassium 4.3 mEq/L (3.5-5.1)
[2021-05-06] MEDS: Methyl Salicylate/Menthol 57 APPL/57 GM TUBE TP PRN (13:00)
[2021-05-06] MEDS: Acetaminophen 325 MG TABLET PO PRN ×2 (13:00→20:11)
[2021-05-06] MEDS: Melatonin 3 MG TABLET PO SCH (20:11)
[2021-05-07] MEDS: Apixaban 5 MG TABLET PO SCH ×2 (04:45→17:45)
[2021-05-07] MEDS: Cholecalciferol (D-3) 1,000 UNIT (25MCG) TABLET PO SCH (07:34)
[2021-05-07] MEDS: Metoprolol XL (24 HR) Succ 25 MG TAB.ER.24H PO SCH (07:34)
[2021-05-07] MEDS: Ascorbic Acid 500 MG TABLET PO SCH (07:34)
[2021-05-07] MEDS: Sennosides/Docusate Sodium TABLET PO SCH ×2 (07:34→20:53)
[2021-05-07] MEDS: polyethylene glycoL 3350 17 GM POWD.PACK PO SCH (07:34)
[2021-05-07] MEDS: Gabapentin 300 MG CAPSULE PO SCH (07:34)
[2021-05-07] MEDS: Isosorbide MONOnitrate (24 HR) 30 MG TAB.ER.24H PO SCH (07:34)
[2021-05-07] MEDS: Multivit/Ca/Min/Fe/FA 1 TAB TABLET PO SCH (07:34)
[2021-05-07] MEDS: Acetaminophen 325 MG TABLET PO PRN ×3 (07:35→23:21)
[2021-05-07] MEDS: Nystatin POWDER 30 GM BOTTLE TP SCH ×2 (07:35→23:23)
[2021-05-07] MEDS: Insulin LISPRO 300 UNITS/3 ML VIAL SUBQ SCH ×7 (07:38→20:54)
[2021-05-07] MEDS: Insulin DETEMIR 100 UNIT/ML X5UNITS SUBQ SCH (07:59)
[2021-05-07] MEDS: Budesonide/Formoterol 160/4.5 1 PUFF INH IH SCH ×2 (08:47→22:44)
[2021-05-07 17:05] LABS: Bilirubin,Urine Negative (Negative); Clarity,Urine Clear (Clear); Color,Urine Light-Yellow (Yellow); Glucose,Urine (UA) Normal (Normal); Ketones,Urine Negative (Negative); Leukocyte Esterase,Urine Large (Negative); Nitrite,Urine Negative (Negative); PH,Urine 6.5 pH Units (5.0-8.0); Protein,Urine 70 mg/dL (Neg-Trace); Urobilinogen,Urine Normal (Normal)
[2021-05-07 17:17] LABS: Adenovirus Not Detected (Not Detect); Bordetella Pertussis Not Detected (Not Detect); Chlamydophila pneumoniae Not Detected (Not Detect); Coronavirus 229E Not Detected (Not Detect); Coronavirus HKU1 Not Detected (Not Detect); Coronavirus NL63 Not Detected (Not Detect); Coronavirus OC43 Not Detected (Not Detect); Human Metapneumovirus Not Detected (Not Detect); Human Rhinovirus/Enterovirus Not Detected (Not Detect); Influenza A Subtype 2009 H1 Not Detected (Not Detect); Influenza B Not Detected (Not Detect); Mycoplasma pneumoniae Not Detected (Not Detect); Parainfluenza Virus 1 Not Detected (Not Detect); Parainfluenza Virus 2 Not Detected (Not Detect); Parainfluenza Virus 3 Not Detected (Not Detect); Parainfluenza Virus 4 Not Detected (Not Detect); Respiratory Syncytial Virus Not Detected (Not Detect); SARS-CoV-2 Not Detected (Not Detect)
[2021-05-07 17:36] LABS: Blood,Urine Small (Negative)
[2021-05-07 17:37] LABS: WBC,Urine 50-100 per hpf (0-3)
[2021-05-07] MEDS: Melatonin 3 MG TABLET PO SCH (20:53)
[2021-05-08] MEDS: Apixaban 5 MG TABLET PO SCH ×2 (06:17→17:53)
[2021-05-08] MEDS: Insulin LISPRO 300 UNITS/3 ML VIAL SUBQ SCH ×7 (07:42→20:20)
[2021-05-08] MEDS: Isosorbide MONOnitrate (24 HR) 30 MG TAB.ER.24H PO SCH (08:15)
[2021-05-08] MEDS: Gabapentin 300 MG CAPSULE PO SCH (08:15)
[2021-05-08] MEDS: Ascorbic Acid 500 MG TABLET PO SCH (08:16)
[2021-05-08] MEDS: Acetaminophen 325 MG TABLET PO PRN ×2 (08:16→22:12)
[2021-05-08] MEDS: Multivit/Ca/Min/Fe/FA 1 TAB TABLET PO SCH (08:16)
[2021-05-08] MEDS: Cholecalciferol (D-3) 1,000 UNIT (25MCG) TABLET PO SCH (08:16)
[2021-05-08] MEDS: Sennosides/Docusate Sodium TABLET PO SCH ×2 (08:16→20:18)
[2021-05-08] MEDS: Cefdinir 300 MG CAPSULE PO SCH (08:17)
[2021-05-08] MEDS: Nystatin POWDER 30 GM BOTTLE TP SCH ×2 (08:17→20:19)
[2021-05-08] MEDS: polyethylene glycoL 3350 17 GM POWD.PACK PO SCH (08:17)
[2021-05-08] MEDS: Metoprolol XL (24 HR) Succ 25 MG TAB.ER.24H PO SCH (08:18)
[2021-05-08] MEDS: Insulin DETEMIR 100 UNIT/ML X5UNITS SUBQ SCH (08:19)
[2021-05-08] MEDS: Budesonide/Formoterol 160/4.5 1 PUFF INH IH SCH ×2 (11:06→21:22)
[2021-05-08] MEDS: Ondansetron ODT 4 MG TAB.RAPDIS SL PRN (20:19)
[2021-05-08] MEDS: Melatonin 3 MG TABLET PO SCH (20:19)
[2021-05-09] MEDS: Acetaminophen 325 MG TABLET PO PRN ×3 (02:15→16:51)
[2021-05-09] MEDS: Methyl Salicylate/Menthol 57 APPL/57 GM TUBE TP PRN (02:18)
[2021-05-09] MEDS: Apixaban 5 MG TABLET PO SCH ×2 (05:38→16:52)
[2021-05-09] MEDS: Patient Taking Own Medication 1 EACH TP SCH (09:00)
[2021-05-09] MEDS: Insulin DETEMIR 100 UNIT/ML X5UNITS SUBQ SCH (09:08)
[2021-05-09] MEDS: Sennosides/Docusate Sodium TABLET PO SCH ×2 (09:09→21:13)
[2021-05-09] MEDS: Multivit/Ca/Min/Fe/FA 1 TAB TABLET PO SCH (09:09)
[2021-05-09] MEDS: Isosorbide MONOnitrate (24 HR) 30 MG TAB.ER.24H PO SCH (09:09)
[2021-05-09] MEDS: Gabapentin 300 MG CAPSULE PO SCH (09:10)
[2021-05-09] MEDS: Ascorbic Acid 500 MG TABLET PO SCH (09:10)
[2021-05-09] MEDS: polyethylene glycoL 3350 17 GM POWD.PACK PO SCH (09:10)
[2021-05-09] MEDS: Cholecalciferol (D-3) 1,000 UNIT (25MCG) TABLET PO SCH (09:10)
[2021-05-09] MEDS: Metoprolol XL (24 HR) Succ 25 MG TAB.ER.24H PO SCH (09:10)
[2021-05-09] MEDS: Insulin LISPRO 300 UNITS/3 ML VIAL SUBQ SCH ×7 (09:13→19:49)
[2021-05-09] MEDS: Nystatin POWDER 30 GM BOTTLE TP SCH ×2 (09:15→21:14)
[2021-05-09] MEDS: Budesonide/Formoterol 160/4.5 1 PUFF INH IH SCH ×2 (10:23→21:30)
[2021-05-09] MEDS: Cefdinir 300 MG CAPSULE PO SCH (12:32)
[2021-05-09] MEDS: Melatonin 3 MG TABLET PO SCH (21:13)
[2021-05-10] MEDS: Methyl Salicylate/Menthol 57 APPL/57 GM TUBE TP PRN (04:29)
[2021-05-10] MEDS: Acetaminophen 325 MG TABLET PO PRN ×2 (04:29→21:11)
[2021-05-10] MEDS: Apixaban 5 MG TABLET PO SCH ×2 (04:30→17:37)
[2021-05-10] MEDS: Insulin LISPRO 300 UNITS/3 ML VIAL SUBQ SCH ×7 (08:29→21:17)
[2021-05-10] MEDS: Ascorbic Acid 500 MG TABLET PO SCH (08:45)
[2021-05-10] MEDS: Isosorbide MONOnitrate (24 HR) 30 MG TAB.ER.24H PO SCH (08:45)
[2021-05-10] MEDS: Multivit/Ca/Min/Fe/FA 1 TAB TABLET PO SCH (08:46)
[2021-05-10] MEDS: Sennosides/Docusate Sodium TABLET PO SCH ×2 (08:46→21:11)
[2021-05-10] MEDS: Gabapentin 300 MG CAPSULE PO SCH (08:46)
[2021-05-10] MEDS: Metoprolol XL (24 HR) Succ 25 MG TAB.ER.24H PO SCH (08:46)
[2021-05-10] MEDS: Cholecalciferol (D-3) 1,000 UNIT (25MCG) TABLET PO SCH (08:47)
[2021-05-10] MEDS: Insulin DETEMIR 100 UNIT/ML X5UNITS SUBQ SCH (08:47)
[2021-05-10] MEDS: polyethylene glycoL 3350 17 GM POWD.PACK PO SCH (08:47)
[2021-05-10] MEDS: Patient Taking Own Medication 1 EACH TP SCH (08:58)
[2021-05-10] MEDS: Nystatin POWDER 30 GM BOTTLE TP SCH (08:58)
[2021-05-10] MEDS: Budesonide/Formoterol 160/4.5 1 PUFF INH IH SCH ×2 (10:38→21:25)
[2021-05-10] MEDS: Cefdinir 300 MG CAPSULE PO SCH (11:50)
[2021-05-10] MEDS: Nystatin Cream 15 GM TUBE TP SCH ×2 (12:04→21:16)
[2021-05-10] MEDS: Melatonin 3 MG TABLET PO SCH (21:11)
[2021-05-11] MEDS: Acetaminophen 325 MG TABLET PO PRN (03:43)
[2021-05-11] MEDS: Apixaban 5 MG TABLET PO SCH ×2 (05:54→17:16)
[2021-05-11] MEDS: Insulin LISPRO 300 UNITS/3 ML VIAL SUBQ SCH ×7 (08:44→20:34)
[2021-05-11] MEDS: polyethylene glycoL 3350 17 GM POWD.PACK PO SCH (08:44)
[2021-05-11] MEDS: Metoprolol XL (24 HR) Succ 25 MG TAB.ER.24H PO SCH (08:44)
[2021-05-11] MEDS: Multivit/Ca/Min/Fe/FA 1 TAB TABLET PO SCH (08:45)
[2021-05-11] MEDS: Nystatin Cream 15 GM TUBE TP SCH ×2 (08:45→19:48)
[2021-05-11] MEDS: Isosorbide MONOnitrate (24 HR) 30 MG TAB.ER.24H PO SCH (08:45)
[2021-05-11] MEDS: Cholecalciferol (D-3) 1,000 UNIT (25MCG) TABLET PO SCH (08:45)
[2021-05-11] MEDS: Sennosides/Docusate Sodium TABLET PO SCH ×2 (08:45→19:46)
[2021-05-11] MEDS: Ascorbic Acid 500 MG TABLET PO SCH (08:45)
[2021-05-11] MEDS: Gabapentin 300 MG CAPSULE PO SCH (08:45)
[2021-05-11] MEDS: Insulin DETEMIR 100 UNIT/ML X5UNITS SUBQ SCH (08:46)
[2021-05-11] MEDS: Patient Taking Own Medication 1 EACH TP SCH (08:54)
[2021-05-11] MEDS: Cefdinir 300 MG CAPSULE PO SCH (11:10)
[2021-05-11] MEDS: Budesonide/Formoterol 160/4.5 1 PUFF INH IH SCH ×2 (11:26→23:47)
[2021-05-11] MEDS: Melatonin 3 MG TABLET PO SCH (19:46)
[2021-05-12] MEDS: Acetaminophen 325 MG TABLET PO PRN ×2 (01:48→19:23)
[2021-05-12] MEDS: Apixaban 5 MG TABLET PO SCH ×2 (04:47→17:35)
[2021-05-12] MEDS: Insulin LISPRO 300 UNITS/3 ML VIAL SUBQ SCH ×7 (08:05→20:36)
[2021-05-12] MEDS: Isosorbide MONOnitrate (24 HR) 30 MG TAB.ER.24H PO SCH (08:46)
[2021-05-12] MEDS: polyethylene glycoL 3350 17 GM POWD.PACK PO SCH (08:46)
[2021-05-12] MEDS: Nystatin Cream 15 GM TUBE TP SCH ×2 (08:47→19:27)
[2021-05-12] MEDS: Sennosides/Docusate Sodium TABLET PO SCH ×2 (08:47→19:24)
[2021-05-12] MEDS: Patient Taking Own Medication 1 EACH TP SCH (08:47)
[2021-05-12] MEDS: Ascorbic Acid 500 MG TABLET PO SCH (08:47)
[2021-05-12] MEDS: Metoprolol XL (24 HR) Succ 25 MG TAB.ER.24H PO SCH (08:47)
[2021-05-12] MEDS: Cholecalciferol (D-3) 1,000 UNIT (25MCG) TABLET PO SCH (08:47)
[2021-05-12] MEDS: Multivit/Ca/Min/Fe/FA 1 TAB TABLET PO SCH (08:47)
[2021-05-12] MEDS: Gabapentin 300 MG CAPSULE PO SCH (08:47)
[2021-05-12] MEDS: Insulin DETEMIR 100 UNIT/ML X5UNITS SUBQ SCH (08:56)
[2021-05-12] MEDS: Budesonide/Formoterol 160/4.5 1 PUFF INH IH SCH ×2 (09:09→22:38)
[2021-05-12] MEDS: Cefdinir 300 MG CAPSULE PO SCH (12:43)
[2021-05-12] MEDS: Melatonin 3 MG TABLET PO SCH (19:23)
[2021-05-13] MEDS: Acetaminophen 325 MG TABLET PO PRN ×2 (01:32→21:17)
[2021-05-13] MEDS: Apixaban 5 MG TABLET PO SCH ×2 (05:00→17:46)
[2021-05-13] MEDS: Insulin LISPRO 300 UNITS/3 ML VIAL SUBQ SCH ×7 (07:48→21:19)
[2021-05-13] MEDS: Cholecalciferol (D-3) 1,000 UNIT (25MCG) TABLET PO SCH (09:54)
[2021-05-13] MEDS: Gabapentin 300 MG CAPSULE PO SCH (09:54)
[2021-05-13] MEDS: Multivit/Ca/Min/Fe/FA 1 TAB TABLET PO SCH (09:55)
[2021-05-13] MEDS: Ascorbic Acid 500 MG TABLET PO SCH (09:55)
[2021-05-13] MEDS: Isosorbide MONOnitrate (24 HR) 30 MG TAB.ER.24H PO SCH (09:55)
[2021-05-13] MEDS: Insulin DETEMIR 100 UNIT/ML X5UNITS SUBQ SCH (09:56)
[2021-05-13] MEDS: Metoprolol XL (24 HR) Succ 25 MG TAB.ER.24H PO SCH (09:56)
[2021-05-13] MEDS: Sennosides/Docusate Sodium TABLET PO SCH ×2 (09:56→21:17)
[2021-05-13] MEDS: polyethylene glycoL 3350 17 GM POWD.PACK PO SCH (09:58)
[2021-05-13] MEDS: Nystatin Cream 15 GM TUBE TP SCH ×2 (09:59→21:18)
[2021-05-13] MEDS: Patient Taking Own Medication 1 EACH TP SCH (10:17)
[2021-05-13] MEDS: Budesonide/Formoterol 160/4.5 1 PUFF INH IH SCH ×2 (10:26→21:41)
[2021-05-13] MEDS: Cefdinir 300 MG CAPSULE PO SCH (12:15)
[2021-05-13] MEDS: Melatonin 3 MG TABLET PO SCH (21:17)
[2021-05-14] MEDS: Apixaban 5 MG TABLET PO SCH ×2 (04:56→17:22)
[2021-05-14] MEDS: Acetaminophen 325 MG TABLET PO PRN ×2 (04:56→11:55)
[2021-05-14] MEDS: Insulin LISPRO 300 UNITS/3 ML VIAL SUBQ SCH ×7 (08:15→20:22)
[2021-05-14] MEDS: Sennosides/Docusate Sodium TABLET PO SCH ×2 (08:16→21:33)
[2021-05-14] MEDS: Cholecalciferol (D-3) 1,000 UNIT (25MCG) TABLET PO SCH (08:16)
[2021-05-14] MEDS: Isosorbide MONOnitrate (24 HR) 30 MG TAB.ER.24H PO SCH (08:16)
[2021-05-14] MEDS: Gabapentin 300 MG CAPSULE PO SCH (08:17)
[2021-05-14] MEDS: Multivit/Ca/Min/Fe/FA 1 TAB TABLET PO SCH (08:17)
[2021-05-14] MEDS: Ascorbic Acid 500 MG TABLET PO SCH (08:17)
[2021-05-14] MEDS: polyethylene glycoL 3350 17 GM POWD.PACK PO SCH (08:18)
[2021-05-14] MEDS: Metoprolol XL (24 HR) Succ 25 MG TAB.ER.24H PO SCH (08:18)
[2021-05-14] MEDS: Nystatin Cream 15 GM TUBE TP SCH ×2 (08:20→21:29)
[2021-05-14] MEDS: Patient Taking Own Medication 1 EACH TP SCH (08:20)
[2021-05-14] MEDS: Insulin DETEMIR 100 UNIT/ML X5UNITS SUBQ SCH (09:14)
[2021-05-14] MEDS: Budesonide/Formoterol 160/4.5 1 PUFF INH IH SCH ×2 (11:29→21:07)
[2021-05-14] MEDS: Cefdinir 300 MG CAPSULE PO SCH (11:51)
[2021-05-14] MEDS: Melatonin 3 MG TABLET PO SCH (21:33)
[2021-05-15] MEDS: Apixaban 5 MG TABLET PO SCH ×2 (05:24→16:56)
[2021-05-15] MEDS: Insulin LISPRO 300 UNITS/3 ML VIAL SUBQ SCH ×7 (08:39→20:17)
[2021-05-15] MEDS: Insulin DETEMIR 100 UNIT/ML X5UNITS SUBQ SCH (08:46)
[2021-05-15] MEDS: Isosorbide MONOnitrate (24 HR) 30 MG TAB.ER.24H PO SCH (08:46)
[2021-05-15] MEDS: Gabapentin 300 MG CAPSULE PO SCH (08:47)
[2021-05-15] MEDS: Multivit/Ca/Min/Fe/FA 1 TAB TABLET PO SCH (08:47)
[2021-05-15] MEDS: Ascorbic Acid 500 MG TABLET PO SCH (08:47)
[2021-05-15] MEDS: Metoprolol XL (24 HR) Succ 25 MG TAB.ER.24H PO SCH (08:47)
[2021-05-15] MEDS: Cholecalciferol (D-3) 1,000 UNIT (25MCG) TABLET PO SCH (08:47)
[2021-05-15] MEDS: Sennosides/Docusate Sodium TABLET PO SCH ×2 (08:47→21:04)
[2021-05-15] MEDS: Nystatin Cream 15 GM TUBE TP SCH ×2 (08:48→21:05)
[2021-05-15] MEDS: Patient Taking Own Medication 1 EACH TP SCH (08:48)
[2021-05-15] MEDS: Budesonide/Formoterol 160/4.5 1 PUFF INH IH SCH ×2 (10:36→21:45)
[2021-05-15] MEDS: Acetaminophen 325 MG TABLET PO PRN (21:04)
[2021-05-15] MEDS: Melatonin 3 MG TABLET PO SCH (21:04)
[2021-05-15] MEDS: *HR* OxyCODONE Immed Rel 5 MG TABLET PO PRN (23:38)
[2021-05-16] MEDS: Apixaban 5 MG TABLET PO SCH ×2 (05:11→17:01)
[2021-05-16] MEDS: Metoprolol XL (24 HR) Succ 25 MG TAB.ER.24H PO SCH (09:18)
[2021-05-16] MEDS: Ascorbic Acid 500 MG TABLET PO SCH (09:19)
[2021-05-16] MEDS: Cholecalciferol (D-3) 1,000 UNIT (25MCG) TABLET PO SCH (09:19)
[2021-05-16] MEDS: Gabapentin 300 MG CAPSULE PO SCH (09:19)
[2021-05-16] MEDS: Isosorbide MONOnitrate (24 HR) 30 MG TAB.ER.24H PO SCH (09:19)
[2021-05-16] MEDS: Multivit/Ca/Min/Fe/FA 1 TAB TABLET PO SCH (09:20)
[2021-05-16] MEDS: Insulin DETEMIR 100 UNIT/ML X5UNITS SUBQ SCH (09:20)
[2021-05-16] MEDS: Sennosides/Docusate Sodium TABLET PO SCH ×2 (09:20→20:41)
[2021-05-16] MEDS: Insulin LISPRO 300 UNITS/3 ML VIAL SUBQ SCH ×7 (09:21→19:53)
[2021-05-16] MEDS: Budesonide/Formoterol 160/4.5 1 PUFF INH IH SCH ×2 (09:34→22:04)
[2021-05-16] MEDS: Nystatin Cream 15 GM TUBE TP SCH ×2 (10:40→20:41)
[2021-05-16] MEDS: Patient Taking Own Medication 1 EACH TP SCH (10:40)
[2021-05-16] MEDS: Acetaminophen 325 MG TABLET PO PRN (20:41)
[2021-05-16] MEDS: Melatonin 3 MG TABLET PO SCH (20:41)
[2021-05-17] MEDS: Apixaban 5 MG TABLET PO SCH ×2 (05:51→17:07)
[2021-05-17] MEDS: Isosorbide MONOnitrate (24 HR) 30 MG TAB.ER.24H PO SCH (08:30)
[2021-05-17] MEDS: Sennosides/Docusate Sodium TABLET PO SCH ×2 (08:31→21:32)
[2021-05-17] MEDS: Cholecalciferol (D-3) 1,000 UNIT (25MCG) TABLET PO SCH (08:31)
[2021-05-17] MEDS: Ascorbic Acid 500 MG TABLET PO SCH (08:31)
[2021-05-17] MEDS: Gabapentin 300 MG CAPSULE PO SCH (08:31)
[2021-05-17] MEDS: Patient Taking Own Medication 1 EACH TP SCH (08:31)
[2021-05-17] MEDS: Multivit/Ca/Min/Fe/FA 1 TAB TABLET PO SCH (08:31)
[2021-05-17] MEDS: Metoprolol XL (24 HR) Succ 25 MG TAB.ER.24H PO SCH (08:31)
[2021-05-17] MEDS: Nystatin Cream 15 GM TUBE TP SCH ×2 (08:32→21:32)
[2021-05-17] MEDS: Insulin LISPRO 300 UNITS/3 ML VIAL SUBQ SCH ×7 (08:32→21:36)
[2021-05-17] MEDS: Insulin DETEMIR 100 UNIT/ML X5UNITS SUBQ SCH (09:25)
[2021-05-17] MEDS: Budesonide/Formoterol 160/4.5 1 PUFF INH IH SCH ×2 (09:46→20:48)
[2021-05-17] MEDS: *HR* OxyCODONE Immed Rel 5 MG TABLET PO PRN ×2 (13:31→21:31)
[2021-05-17] MEDS: Melatonin 3 MG TABLET PO SCH (21:31)
[2021-05-18] MEDS: Acetaminophen 325 MG TABLET PO PRN ×2 (04:12→18:28)
[2021-05-18] MEDS: Apixaban 5 MG TABLET PO SCH ×2 (04:13→18:29)
[2021-05-18] MEDS: Gabapentin 300 MG CAPSULE PO SCH (09:00)
[2021-05-18] MEDS: Isosorbide MONOnitrate (24 HR) 30 MG TAB.ER.24H PO SCH (09:00)
[2021-05-18] MEDS: Multivit/Ca/Min/Fe/FA 1 TAB TABLET PO SCH (09:00)
[2021-05-18] MEDS: Cholecalciferol (D-3) 1,000 UNIT (25MCG) TABLET PO SCH (09:00)
[2021-05-18] MEDS: Ascorbic Acid 500 MG TABLET PO SCH (09:01)
[2021-05-18] MEDS: Metoprolol XL (24 HR) Succ 25 MG TAB.ER.24H PO SCH (09:01)
[2021-05-18] MEDS: Sennosides/Docusate Sodium TABLET PO SCH ×2 (09:01→20:53)
[2021-05-18] MEDS: Insulin LISPRO 300 UNITS/3 ML VIAL SUBQ SCH ×7 (09:02→20:38)
[2021-05-18] MEDS: Insulin DETEMIR 100 UNIT/ML X5UNITS SUBQ SCH (09:02)
[2021-05-18] MEDS: Patient Taking Own Medication 1 EACH TP SCH (09:54)
[2021-05-18] MEDS: Nystatin Cream 15 GM TUBE TP SCH ×2 (09:55→20:54)
[2021-05-18] MEDS: Budesonide/Formoterol 160/4.5 1 PUFF INH IH SCH ×2 (10:33→20:25)
[2021-05-18] MEDS: Melatonin 3 MG TABLET PO SCH (20:54)
[2021-05-19] MEDS: Acetaminophen 325 MG TABLET PO PRN (05:10)
[2021-05-19] MEDS: Apixaban 5 MG TABLET PO SCH ×2 (05:10→16:43)
[2021-05-19] MEDS: Insulin LISPRO 300 UNITS/3 ML VIAL SUBQ SCH ×7 (07:21→21:00)
[2021-05-19] MEDS: Isosorbide MONOnitrate (24 HR) 30 MG TAB.ER.24H PO SCH (07:47)
[2021-05-19] MEDS: Multivit/Ca/Min/Fe/FA 1 TAB TABLET PO SCH (07:48)
[2021-05-19] MEDS: Ascorbic Acid 500 MG TABLET PO SCH (07:48)
[2021-05-19] MEDS: Cholecalciferol (D-3) 1,000 UNIT (25MCG) TABLET PO SCH (07:48)
[2021-05-19] MEDS: Metoprolol XL (24 HR) Succ 25 MG TAB.ER.24H PO SCH (07:48)
[2021-05-19] MEDS: *HR* OxyCODONE Immed Rel 5 MG TABLET PO PRN (07:49)
[2021-05-19] MEDS: Sennosides/Docusate Sodium TABLET PO SCH ×2 (07:49→21:57)
[2021-05-19] MEDS: Gabapentin 300 MG CAPSULE PO SCH (07:49)
[2021-05-19 08:47] LABS: Basophils % 0.6 %; Eosinophils # 0.2 K/mcL (0.0-0.6); Eosinophils % 4.6 %; Hematocrit 37.9 % (35.3-44.9); Hemoglobin 12.3 g/dL (11.5-15.4); Immature Granulocytes % 0.4 % (0-4); Lymphocytes # 0.8 K/mcL (0.6-4.6); Lymphocytes % 14.9 %; Mean Corpuscular HGB Conc 32.5 g/dL (31.6-35.5); Mean Corpuscular Hemoglobin 33.6 pg (28.0-33.3); Mean Corpuscular Volume 103.6 fL (83.0-100.0); Mean Platelet Volume 9.5 fL (9.4-12.4); Monocytes # 0.5 K/mcL (0.0-1.3); Monocytes % 9.5 %; Neutrophils # 3.6 K/mcL (1.6-8.9); Platelet Count 175 K/mcL (140-400); Red Blood Count 3.66 M/mcL (3.82-4.97); Red Cell Distribution Width 13.3 % (11.5-14.5); White Blood Count 5.2 K/mcL (4.3-11.1)
[2021-05-19] MEDS: Insulin DETEMIR 100 UNIT/ML X5UNITS SUBQ SCH (08:51)
[2021-05-19 09:13] LABS: Calcium 9.7 mg/dL (8.6-10.3); Potassium 4.2 mEq/L (3.5-5.1)
[2021-05-19] MEDS: Patient Taking Own Medication 1 EACH TP SCH (09:55)
[2021-05-19] MEDS: Budesonide/Formoterol 160/4.5 1 PUFF INH IH SCH ×2 (10:51→22:15)
[2021-05-19] MEDS: Nystatin Cream 15 GM TUBE TP SCH ×2 (12:25→23:52)
[2021-05-19] MEDS ORDERED: *HR* LORazepam 0.5 MG TABLET PO ONE (16:32)
[2021-05-19] MEDS: Melatonin 3 MG TABLET PO SCH (21:58)
[2021-05-20] MEDS: *HR* OxyCODONE Immed Rel 5 MG TABLET PO PRN (01:58)
[2021-05-20] MEDS: Apixaban 5 MG TABLET PO SCH ×2 (05:41→16:59)
[2021-05-20] MEDS: Ascorbic Acid 500 MG TABLET PO SCH (09:03)
[2021-05-20] MEDS: Metoprolol XL (24 HR) Succ 25 MG TAB.ER.24H PO SCH (09:03)
[2021-05-20] MEDS: Isosorbide MONOnitrate (24 HR) 30 MG TAB.ER.24H PO SCH (09:03)
[2021-05-20] MEDS: Gabapentin 300 MG CAPSULE PO SCH (09:04)
[2021-05-20] MEDS: Cholecalciferol (D-3) 1,000 UNIT (25MCG) TABLET PO SCH (09:04)
[2021-05-20] MEDS: Multivit/Ca/Min/Fe/FA 1 TAB TABLET PO SCH (09:04)
[2021-05-20] MEDS: Insulin DETEMIR 100 UNIT/ML X5UNITS SUBQ SCH (09:04)
[2021-05-20] MEDS: Sennosides/Docusate Sodium TABLET PO SCH ×2 (09:04→22:12)
[2021-05-20] MEDS: Insulin LISPRO 300 UNITS/3 ML VIAL SUBQ SCH ×7 (09:05→22:12)
[2021-05-20] MEDS: Budesonide/Formoterol 160/4.5 1 PUFF INH IH SCH ×2 (10:40→21:20)
[2021-05-20] MEDS: Nystatin Cream 15 GM TUBE TP SCH ×2 (12:39→22:15)
[2021-05-20] MEDS: Patient Taking Own Medication 1 EACH TP SCH (12:39)
[2021-05-20] MEDS: Melatonin 3 MG TABLET PO SCH (22:12)
[2021-05-21] MEDS: *HR* OxyCODONE Immed Rel 5 MG TABLET PO PRN ×2 (02:04→21:15)
[2021-05-21] MEDS: Apixaban 5 MG TABLET PO SCH ×2 (06:01→17:55)
[2021-05-21] MEDS: Insulin LISPRO 300 UNITS/3 ML VIAL SUBQ SCH ×6 (09:04→17:57)
[2021-05-21] MEDS: Patient Taking Own Medication 1 EACH TP SCH (09:05)
[2021-05-21] MEDS: Ascorbic Acid 500 MG TABLET PO SCH (09:17)
[2021-05-21] MEDS: Metoprolol XL (24 HR) Succ 25 MG TAB.ER.24H PO SCH (09:17)
[2021-05-21] MEDS: Nystatin Cream 15 GM TUBE TP SCH (09:17)
[2021-05-21] MEDS: Isosorbide MONOnitrate (24 HR) 30 MG TAB.ER.24H PO SCH (09:17)
[2021-05-21] MEDS: Sennosides/Docusate Sodium TABLET PO SCH ×2 (09:18→21:14)
[2021-05-21] MEDS: Gabapentin 300 MG CAPSULE PO SCH (09:19)
[2021-05-21] MEDS: Multivit/Ca/Min/Fe/FA 1 TAB TABLET PO SCH (09:19)
[2021-05-21] MEDS: Insulin DETEMIR 100 UNIT/ML X5UNITS SUBQ SCH (09:19)
[2021-05-21] MEDS: Cholecalciferol (D-3) 1,000 UNIT (25MCG) TABLET PO SCH (09:19)
[2021-05-21] MEDS: Budesonide/Formoterol 160/4.5 1 PUFF INH IH SCH ×2 (10:15→21:19)
[2021-05-21] MEDS: Melatonin 3 MG TABLET PO SCH (21:14)
[2021-05-22] MEDS: Insulin LISPRO 300 UNITS/3 ML VIAL SUBQ SCH ×8 (00:38→20:19)
[2021-05-22] MEDS: Nystatin Cream 15 GM TUBE TP SCH ×3 (01:15→20:19)
[2021-05-22] MEDS: Apixaban 5 MG TABLET PO SCH ×2 (06:02→17:14)
[2021-05-22] MEDS: *HR* OxyCODONE Immed Rel 5 MG TABLET PO PRN ×2 (06:06→17:13)
[2021-05-22] MEDS: Multivit/Ca/Min/Fe/FA 1 TAB TABLET PO SCH (09:06)
[2021-05-22] MEDS: Cholecalciferol (D-3) 1,000 UNIT (25MCG) TABLET PO SCH (09:06)
[2021-05-22] MEDS: Isosorbide MONOnitrate (24 HR) 30 MG TAB.ER.24H PO SCH (09:06)
[2021-05-22] MEDS: Gabapentin 300 MG CAPSULE PO SCH (09:06)
[2021-05-22] MEDS: Metoprolol XL (24 HR) Succ 25 MG TAB.ER.24H PO SCH (09:07)
[2021-05-22] MEDS: Sennosides/Docusate Sodium TABLET PO SCH ×2 (09:07→20:18)
[2021-05-22] MEDS: Insulin DETEMIR 100 UNIT/ML X5UNITS SUBQ SCH (09:07)
[2021-05-22] MEDS: Ascorbic Acid 500 MG TABLET PO SCH (09:07)
[2021-05-22] MEDS: Patient Taking Own Medication 1 EACH TP SCH (09:08)
[2021-05-22] MEDS: Budesonide/Formoterol 160/4.5 1 PUFF INH IH SCH ×2 (09:34→22:04)
[2021-05-22] MEDS: Melatonin 3 MG TABLET PO SCH (20:19)
[2021-05-23] MEDS: *HR* OxyCODONE Immed Rel 5 MG TABLET PO PRN ×2 (05:30→18:42)
[2021-05-23] MEDS: Apixaban 5 MG TABLET PO SCH ×2 (05:31→17:33)
[2021-05-23] MEDS: Insulin LISPRO 300 UNITS/3 ML VIAL SUBQ SCH ×7 (08:44→22:54)
[2021-05-23] MEDS: Patient Taking Own Medication 1 EACH TP SCH (08:50)
[2021-05-23] MEDS: Multivit/Ca/Min/Fe/FA 1 TAB TABLET PO SCH (10:23)
[2021-05-23] MEDS: Gabapentin 300 MG CAPSULE PO SCH (10:23)
[2021-05-23] MEDS: Isosorbide MONOnitrate (24 HR) 30 MG TAB.ER.24H PO SCH (10:23)
[2021-05-23] MEDS: Sennosides/Docusate Sodium TABLET PO SCH ×2 (10:23→22:54)
[2021-05-23] MEDS: Metoprolol XL (24 HR) Succ 25 MG TAB.ER.24H PO SCH (10:23)
[2021-05-23] MEDS: Acetaminophen 325 MG TABLET PO PRN (10:23)
[2021-05-23] MEDS: Ascorbic Acid 500 MG TABLET PO SCH (10:23)
[2021-05-23] MEDS: Nystatin Cream 15 GM TUBE TP SCH ×2 (10:24→22:55)
[2021-05-23] MEDS: Cholecalciferol (D-3) 1,000 UNIT (25MCG) TABLET PO SCH (10:24)
[2021-05-23] MEDS: Insulin DETEMIR 100 UNIT/ML X5UNITS SUBQ SCH (10:27)
[2021-05-23] MEDS: Budesonide/Formoterol 160/4.5 1 PUFF INH IH SCH ×2 (10:31→20:10)
[2021-05-23] MEDS: Melatonin 3 MG TABLET PO SCH (22:55)
[2021-05-24] MEDS: Acetaminophen 325 MG TABLET PO PRN ×2 (01:46→15:41)
[2021-05-24] MEDS: Apixaban 5 MG TABLET PO SCH ×2 (05:54→17:16)
[2021-05-24] MEDS: Ascorbic Acid 500 MG TABLET PO SCH (08:11)
[2021-05-24] MEDS: Multivit/Ca/Min/Fe/FA 1 TAB TABLET PO SCH (08:11)
[2021-05-24] MEDS: Cholecalciferol (D-3) 1,000 UNIT (25MCG) TABLET PO SCH (08:11)
[2021-05-24] MEDS: Isosorbide MONOnitrate (24 HR) 30 MG TAB.ER.24H PO SCH (08:11)
[2021-05-24] MEDS: Metoprolol XL (24 HR) Succ 25 MG TAB.ER.24H PO SCH (08:11)
[2021-05-24] MEDS: Gabapentin 300 MG CAPSULE PO SCH (08:12)
[2021-05-24] MEDS: Insulin DETEMIR 100 UNIT/ML X5UNITS SUBQ SCH (08:12)
[2021-05-24] MEDS: Sennosides/Docusate Sodium TABLET PO SCH ×2 (08:12→21:28)
[2021-05-24] MEDS: Patient Taking Own Medication 1 EACH TP SCH (08:21)
[2021-05-24] MEDS: Nystatin Cream 15 GM TUBE TP SCH ×2 (08:21→21:32)
[2021-05-24] MEDS: Insulin LISPRO 300 UNITS/3 ML VIAL SUBQ SCH ×7 (08:22→21:28)
[2021-05-24] MEDS: Budesonide/Formoterol 160/4.5 1 PUFF INH IH SCH ×2 (09:18→20:19)
[2021-05-24] MEDS ORDERED: Methyl Salicylate/Menthol 85 APPL/85 GM TUBE TP PRN (13:30)
[2021-05-24] MEDS: hydrOXYzine pamoate 25 MG CAPSULE PO PRN (21:27)
[2021-05-24] MEDS: *HR* OxyCODONE Immed Rel 5 MG TABLET PO PRN (21:27)
[2021-05-24] MEDS: Melatonin 3 MG TABLET PO SCH (21:28)
[2021-05-25] MEDS: Apixaban 5 MG TABLET PO SCH ×2 (06:19→18:07)
[2021-05-25] MEDS: Insulin LISPRO 300 UNITS/3 ML VIAL SUBQ SCH ×7 (08:32→20:17)
[2021-05-25] MEDS: Sennosides/Docusate Sodium TABLET PO SCH ×2 (08:54→20:18)
[2021-05-25] MEDS: Isosorbide MONOnitrate (24 HR) 30 MG TAB.ER.24H PO SCH (08:54)
[2021-05-25] MEDS: Gabapentin 300 MG CAPSULE PO SCH (08:54)
[2021-05-25] MEDS: Ascorbic Acid 500 MG TABLET PO SCH (08:54)
[2021-05-25] MEDS: Metoprolol XL (24 HR) Succ 25 MG TAB.ER.24H PO SCH (08:54)
[2021-05-25] MEDS: Patient Taking Own Medication 1 EACH TP SCH (08:55)
[2021-05-25] MEDS: Cholecalciferol (D-3) 1,000 UNIT (25MCG) TABLET PO SCH (08:56)
[2021-05-25] MEDS: Multivit/Ca/Min/Fe/FA 1 TAB TABLET PO SCH (08:56)
[2021-05-25] MEDS: Nystatin Cream 15 GM TUBE TP SCH ×2 (09:00→20:24)
[2021-05-25] MEDS: Acetaminophen 325 MG TABLET PO PRN (09:03)
[2021-05-25] MEDS: Insulin DETEMIR 100 UNIT/ML X5UNITS SUBQ SCH (09:57)
[2021-05-25] MEDS: Budesonide/Formoterol 160/4.5 1 PUFF INH IH SCH ×2 (10:06→20:40)
[2021-05-25 12:39] LABS: Basophils % 0.6 %; Eosinophils # 0.2 K/mcL (0.0-0.6); Eosinophils % 3.7 %; Hematocrit 36.1 % (35.3-44.9); Hemoglobin 11.8 g/dL (11.5-15.4); Immature Granulocytes % 0.4 % (0-4); Lymphocytes # 0.7 K/mcL (0.6-4.6); Lymphocytes % 13.5 %; Mean Corpuscular HGB Conc 32.7 g/dL (31.6-35.5); Mean Corpuscular Hemoglobin 32.9 pg (28.0-33.3); Mean Corpuscular Volume 100.6 fL (83.0-100.0); Mean Platelet Volume 9.3 fL (9.4-12.4); Monocytes # 0.4 K/mcL (0.0-1.3); Monocytes % 9.1 %; Neutrophils # 3.5 K/mcL (1.6-8.9); Platelet Count 202 K/mcL (140-400); Red Blood Count 3.59 M/mcL (3.82-4.97); Red Cell Distribution Width 13.2 % (11.5-14.5); Segmented Neutrophils % 72.7 %; White Blood Count 4.8 K/mcL (4.3-11.1)
[2021-05-25 13:09] LABS: Albumin 3.7 g/dL (3.5-5.7); Albumin/Globulin Ratio 1.4 (1.1-2.2); Bilirubin,Total 0.7 mg/dL (0.3-1.0); Calcium 9.4 mg/dL (8.6-10.3); Globulin 2.7 g/dL (2.4-3.5); Potassium 4.3 mEq/L (3.5-5.1); Total Protein 6.4 g/dL (6.4-8.9)
[2021-05-25] MEDS: *HR* OxyCODONE Immed Rel 5 MG TABLET PO PRN (20:17)
[2021-05-25] MEDS: hydrOXYzine pamoate 25 MG CAPSULE PO PRN (20:19)
[2021-05-25] MEDS ORDERED: QUEtiapine Fumarate 25 MG TABLET PO SCH ×2 (21:00)
[2021-05-26] MEDS: Acetaminophen 325 MG TABLET PO PRN (03:15)
[2021-05-26] MEDS: Apixaban 5 MG TABLET PO SCH ×2 (06:27→17:27)
[2021-05-26] MEDS: Budesonide/Formoterol 160/4.5 1 PUFF INH IH SCH ×2 (09:33→21:59)
[2021-05-26 09:40] LABS: Bilirubin,Urine Negative (Negative); Blood,Urine Small (Negative); Clarity,Urine Clear (Clear); Color,Urine Yellow (Yellow); Glucose,Urine (UA) Normal (Normal); Ketones,Urine Negative (Negative); Leukocyte Esterase,Urine Small (Negative); Nitrite,Urine Positive (Negative); Protein,Urine 100 mg/dL (Neg-Trace); Urobilinogen,Urine Normal (Normal)
[2021-05-26 09:47] LABS: Bacteria,Urine Few per hpf (None-Few); RBC,Urine 0-3 per hpf (0-3)
[2021-05-26] MEDS: Isosorbide MONOnitrate (24 HR) 30 MG TAB.ER.24H PO SCH (09:53)
[2021-05-26] MEDS: Insulin DETEMIR 100 UNIT/ML X5UNITS SUBQ SCH (09:54)
[2021-05-26] MEDS: Insulin LISPRO 300 UNITS/3 ML VIAL SUBQ SCH ×7 (09:55→22:28)
[2021-05-26] MEDS: *HR* OxyCODONE Immed Rel 5 MG TABLET PO PRN ×2 (09:56→21:33)
[2021-05-26] MEDS: Multivit/Ca/Min/Fe/FA 1 TAB TABLET PO SCH (09:56)
[2021-05-26] MEDS: Gabapentin 300 MG CAPSULE PO SCH (09:56)
[2021-05-26] MEDS: Cholecalciferol (D-3) 1,000 UNIT (25MCG) TABLET PO SCH (09:56)
[2021-05-26] MEDS: Ascorbic Acid 500 MG TABLET PO SCH (09:57)
[2021-05-26] MEDS: Sennosides/Docusate Sodium TABLET PO SCH ×2 (09:57→21:34)
[2021-05-26] MEDS: Metoprolol XL (24 HR) Succ 25 MG TAB.ER.24H PO SCH (09:58)
[2021-05-26] MEDS: Nystatin Cream 15 GM TUBE TP SCH ×2 (09:59→22:29)
[2021-05-26] MEDS: Patient Taking Own Medication 1 EACH TP SCH (10:06)
[2021-05-26] MEDS: *HR* LORazepam 0.5 MG TABLET PO PRN (15:02)
[2021-05-26] MEDS: cefTRIAXone 2,000 MG in 0.9 % Sodium Chloride Mini Bag 100 ML IVPB SCH (17:27)
[2021-05-26] MEDS: hydrOXYzine pamoate 25 MG CAPSULE PO PRN (21:33)
[2021-05-26] MEDS: QUEtiapine Fumarate 25 MG TABLET PO SCH (21:33)
[2021-05-27] MEDS: Apixaban 5 MG TABLET PO SCH ×2 (05:48→16:58)
[2021-05-27] MEDS: Cholecalciferol (D-3) 1,000 UNIT (25MCG) TABLET PO SCH (07:48)
[2021-05-27] MEDS: Isosorbide MONOnitrate (24 HR) 30 MG TAB.ER.24H PO SCH (07:48)
[2021-05-27] MEDS: Sennosides/Docusate Sodium TABLET PO SCH ×2 (07:49→21:18)
[2021-05-27] MEDS: Multivit/Ca/Min/Fe/FA 1 TAB TABLET PO SCH (07:49)
[2021-05-27] MEDS: Ascorbic Acid 500 MG TABLET PO SCH (07:50)
[2021-05-27] MEDS: Gabapentin 300 MG CAPSULE PO SCH (07:50)
[2021-05-27] MEDS: *HR* OxyCODONE Immed Rel 5 MG TABLET PO PRN ×2 (07:50→21:15)
[2021-05-27] MEDS: Metoprolol XL (24 HR) Succ 25 MG TAB.ER.24H PO SCH (07:51)
[2021-05-27] MEDS: Patient Taking Own Medication 1 EACH TP SCH (07:53)
[2021-05-27] MEDS: Insulin LISPRO 300 UNITS/3 ML VIAL SUBQ SCH ×7 (07:53→21:07)
[2021-05-27] MEDS: Nystatin Cream 15 GM TUBE TP SCH ×2 (07:55→21:19)
[2021-05-27] MEDS: Insulin DETEMIR 100 UNIT/ML X5UNITS SUBQ SCH (08:39)
[2021-05-27] MEDS: Budesonide/Formoterol 160/4.5 1 PUFF INH IH SCH ×2 (10:34→20:15)
[2021-05-27] MEDS: cefTRIAXone 2,000 MG in 0.9 % Sodium Chloride Mini Bag 100 ML IVPB SCH (14:44)
[2021-05-27] MEDS: Acetaminophen 325 MG TABLET PO PRN (16:58)
[2021-05-27] MEDS: QUEtiapine Fumarate 25 MG TABLET PO SCH (21:15)
[2021-05-28] MEDS: *HR* OxyCODONE Immed Rel 5 MG TABLET PO PRN ×2 (04:54→22:23)
[2021-05-28] MEDS: Apixaban 5 MG TABLET PO SCH ×2 (06:19→16:45)
[2021-05-28] MEDS: Isosorbide MONOnitrate (24 HR) 30 MG TAB.ER.24H PO SCH (07:46)
[2021-05-28] MEDS: Cholecalciferol (D-3) 1,000 UNIT (25MCG) TABLET PO SCH (07:46)
[2021-05-28] MEDS: Sennosides/Docusate Sodium TABLET PO SCH ×2 (07:47→22:21)
[2021-05-28] MEDS: Ascorbic Acid 500 MG TABLET PO SCH (07:47)
[2021-05-28] MEDS: Gabapentin 300 MG CAPSULE PO SCH (07:48)
[2021-05-28] MEDS: Multivit/Ca/Min/Fe/FA 1 TAB TABLET PO SCH (07:48)
[2021-05-28] MEDS: Nystatin Cream 15 GM TUBE TP SCH ×2 (07:48→22:21)
[2021-05-28] MEDS: Metoprolol XL (24 HR) Succ 25 MG TAB.ER.24H PO SCH (07:49)
[2021-05-28] MEDS: Insulin LISPRO 300 UNITS/3 ML VIAL SUBQ SCH ×7 (07:52→22:21)
[2021-05-28] MEDS: Insulin DETEMIR 100 UNIT/ML X5UNITS SUBQ SCH (07:55)
[2021-05-28] MEDS: Patient Taking Own Medication 1 EACH TP SCH (07:59)
[2021-05-28] MEDS: Budesonide/Formoterol 160/4.5 1 PUFF INH IH SCH ×2 (10:40→20:29)
[2021-05-28] MEDS: *HR* LORazepam 0.5 MG TABLET PO PRN ×2 (10:41→22:22)
[2021-05-28] MEDS: Acetaminophen 325 MG TABLET PO PRN (10:41)
[2021-05-28] MEDS: cefTRIAXone 2,000 MG in 0.9 % Sodium Chloride Mini Bag 100 ML IVPB SCH (14:46)
[2021-05-28] MEDS: Ondansetron ODT 4 MG TAB.RAPDIS SL PRN (18:52)
[2021-05-28] MEDS: QUEtiapine Fumarate 25 MG TABLET PO SCH (22:22)
[2021-05-29] MEDS: Apixaban 5 MG TABLET PO SCH ×2 (05:25→17:06)
[2021-05-29 07:52] LABS: Hematocrit 37.2 % (35.3-44.9); Hemoglobin 11.7 g/dL (11.5-15.4); Mean Corpuscular HGB Conc 31.5 g/dL (31.6-35.5); Mean Corpuscular Hemoglobin 33.3 pg (28.0-33.3); Mean Platelet Volume 9.2 fL (9.4-12.4); Platelet Count 183 K/mcL (140-400); Red Blood Count 3.51 M/mcL (3.82-4.97); White Blood Count 4.2 K/mcL (4.3-11.1)
[2021-05-29 08:03] LABS: Calcium 9.3 mg/dL (8.6-10.3); Potassium 4.9 mEq/L (3.5-5.1)
[2021-05-29] MEDS: Insulin LISPRO 300 UNITS/3 ML VIAL SUBQ SCH ×7 (09:17→20:12)
[2021-05-29] MEDS: Isosorbide MONOnitrate (24 HR) 30 MG TAB.ER.24H PO SCH (09:19)
[2021-05-29] MEDS: Ascorbic Acid 500 MG TABLET PO SCH (09:20)
[2021-05-29] MEDS: Gabapentin 300 MG CAPSULE PO SCH (09:20)
[2021-05-29] MEDS: Cholecalciferol (D-3) 1,000 UNIT (25MCG) TABLET PO SCH (09:20)
[2021-05-29] MEDS: Metoprolol XL (24 HR) Succ 25 MG TAB.ER.24H PO SCH (09:20)
[2021-05-29] MEDS: Sennosides/Docusate Sodium TABLET PO SCH ×2 (09:20→20:06)
[2021-05-29] MEDS: *HR* LORazepam 0.5 MG TABLET PO PRN ×2 (09:20→20:06)
[2021-05-29] MEDS: Multivit/Ca/Min/Fe/FA 1 TAB TABLET PO SCH (09:20)
[2021-05-29] MEDS: *HR* OxyCODONE Immed Rel 5 MG TABLET PO PRN (09:21)
[2021-05-29] MEDS: Insulin DETEMIR 100 UNIT/ML X5UNITS SUBQ SCH (09:22)
[2021-05-29] MEDS: Nystatin Cream 15 GM TUBE TP SCH (09:22)
[2021-05-29] MEDS: Patient Taking Own Medication 1 EACH TP SCH (09:22)
[2021-05-29] MEDS: Budesonide/Formoterol 160/4.5 1 PUFF INH IH SCH ×2 (10:19→20:29)
[2021-05-29] MEDS: cefTRIAXone 2,000 MG in 0.9 % Sodium Chloride Mini Bag 100 ML IVPB SCH (14:07)
[2021-05-29] MEDS ORDERED: Fosfomycin Tromethamine 3 GM Packet PO ONE (15:00)
[2021-05-29] MEDS: Acetaminophen 325 MG TABLET PO PRN (20:05)
[2021-05-29] MEDS: hydrOXYzine pamoate 25 MG CAPSULE PO PRN (20:06)
[2021-05-29] MEDS: QUEtiapine Fumarate 25 MG TABLET PO SCH (20:06)
[2021-05-30] MEDS: *HR* OxyCODONE Immed Rel 5 MG TABLET PO PRN ×3 (00:04→22:42)
[2021-05-30] MEDS: Nystatin Cream 15 GM TUBE TP SCH ×2 (01:17→08:37)
[2021-05-30] MEDS: Apixaban 5 MG TABLET PO SCH ×2 (05:23→16:48)
[2021-05-30] MEDS: Sennosides/Docusate Sodium TABLET PO SCH ×2 (08:36→22:42)
[2021-05-30] MEDS: Multivit/Ca/Min/Fe/FA 1 TAB TABLET PO SCH (08:36)
[2021-05-30] MEDS: Metoprolol XL (24 HR) Succ 25 MG TAB.ER.24H PO SCH (08:36)
[2021-05-30] MEDS: Gabapentin 300 MG CAPSULE PO SCH (08:36)
[2021-05-30] MEDS: Ascorbic Acid 500 MG TABLET PO SCH (08:36)
[2021-05-30] MEDS: Isosorbide MONOnitrate (24 HR) 30 MG TAB.ER.24H PO SCH (08:36)
[2021-05-30] MEDS: Patient Taking Own Medication 1 EACH TP SCH (08:37)
[2021-05-30] MEDS: Insulin DETEMIR 100 UNIT/ML X5UNITS SUBQ SCH (08:37)
[2021-05-30] MEDS: Cholecalciferol (D-3) 1,000 UNIT (25MCG) TABLET PO SCH (08:37)
[2021-05-30] MEDS: Insulin LISPRO 300 UNITS/3 ML VIAL SUBQ SCH ×6 (08:38→16:49)
[2021-05-30] MEDS: Acetaminophen 325 MG TABLET PO PRN ×2 (08:47→18:34)
[2021-05-30] MEDS: Budesonide/Formoterol 160/4.5 1 PUFF INH IH SCH ×2 (09:44→22:24)
[2021-05-30] MEDS: hydrOXYzine pamoate 25 MG CAPSULE PO PRN (22:42)
[2021-05-30] MEDS: QUEtiapine Fumarate 25 MG TABLET PO SCH (22:42)
[2021-05-31] MEDS: Apixaban 5 MG TABLET PO SCH ×2 (05:22→17:34)
[2021-05-31] MEDS: Insulin LISPRO 300 UNITS/3 ML VIAL SUBQ SCH ×8 (08:57→20:31)
[2021-05-31] MEDS: Nystatin Cream 15 GM TUBE TP SCH ×3 (08:57→22:20)
[2021-05-31] MEDS: Metoprolol XL (24 HR) Succ 25 MG TAB.ER.24H PO SCH (08:58)
[2021-05-31] MEDS: Insulin DETEMIR 100 UNIT/ML X5UNITS SUBQ SCH (08:58)
[2021-05-31] MEDS: Sennosides/Docusate Sodium TABLET PO SCH ×2 (08:59→20:32)
[2021-05-31] MEDS: Isosorbide MONOnitrate (24 HR) 30 MG TAB.ER.24H PO SCH (09:00)
[2021-05-31] MEDS: *HR* OxyCODONE Immed Rel 5 MG TABLET PO PRN (09:00)
[2021-05-31] MEDS: *HR* LORazepam 0.5 MG TABLET PO PRN (09:00)
[2021-05-31] MEDS: Gabapentin 300 MG CAPSULE PO SCH (09:02)
[2021-05-31] MEDS: Multivit/Ca/Min/Fe/FA 1 TAB TABLET PO SCH (09:02)
[2021-05-31] MEDS: Ascorbic Acid 500 MG TABLET PO SCH (09:02)
[2021-05-31] MEDS: Cholecalciferol (D-3) 1,000 UNIT (25MCG) TABLET PO SCH (09:02)
[2021-05-31] MEDS: Budesonide/Formoterol 160/4.5 1 PUFF INH IH SCH ×2 (09:40→22:02)
[2021-05-31] MEDS: Patient Taking Own Medication 1 EACH TP SCH (10:31)
[2021-05-31] MEDS: QUEtiapine Fumarate 25 MG TABLET PO SCH (20:33)
[2021-06-01] MEDS: *HR* OxyCODONE Immed Rel 5 MG TABLET PO PRN ×2 (04:35→14:32)
[2021-06-01] MEDS: Apixaban 5 MG TABLET PO SCH ×2 (05:30→17:08)
[2021-06-01] MEDS: Metoprolol XL (24 HR) Succ 25 MG TAB.ER.24H PO SCH (07:55)
[2021-06-01] MEDS: Isosorbide MONOnitrate (24 HR) 30 MG TAB.ER.24H PO SCH (07:55)
[2021-06-01] MEDS: Sennosides/Docusate Sodium TABLET PO SCH ×2 (07:55→19:30)
[2021-06-01] MEDS: Ascorbic Acid 500 MG TABLET PO SCH (07:55)
[2021-06-01] MEDS: Cholecalciferol (D-3) 1,000 UNIT (25MCG) TABLET PO SCH (07:55)
[2021-06-01] MEDS: Multivit/Ca/Min/Fe/FA 1 TAB TABLET PO SCH (07:56)
[2021-06-01] MEDS: Gabapentin 300 MG CAPSULE PO SCH (07:56)
[2021-06-01] MEDS: Patient Taking Own Medication 1 EACH TP SCH (07:56)
[2021-06-01] MEDS: Nystatin Cream 15 GM TUBE TP SCH (07:56)
[2021-06-01] MEDS: Insulin LISPRO 300 UNITS/3 ML VIAL SUBQ SCH ×7 (08:48→21:05)
[2021-06-01] MEDS: Insulin DETEMIR 100 UNIT/ML X5UNITS SUBQ SCH (08:48)
[2021-06-01] MEDS: Budesonide/Formoterol 160/4.5 1 PUFF INH IH SCH ×2 (10:34→20:35)
[2021-06-01] MEDS: QUEtiapine Fumarate 25 MG TABLET PO SCH (19:30)
[2021-06-01] MEDS: Acetaminophen 325 MG TABLET PO PRN (19:30)
[2021-06-02] MEDS: Nystatin Cream 15 GM TUBE TP SCH ×3 (03:14→20:21)
[2021-06-02] MEDS: Apixaban 5 MG TABLET PO SCH ×2 (05:51→17:11)
[2021-06-02] MEDS: Gabapentin 300 MG CAPSULE PO SCH (08:10)
[2021-06-02] MEDS: Isosorbide MONOnitrate (24 HR) 30 MG TAB.ER.24H PO SCH (08:10)
[2021-06-02] MEDS: Ascorbic Acid 500 MG TABLET PO SCH (08:10)
[2021-06-02] MEDS: Sennosides/Docusate Sodium TABLET PO SCH ×2 (08:11→20:20)
[2021-06-02] MEDS: Multivit/Ca/Min/Fe/FA 1 TAB TABLET PO SCH (08:11)
[2021-06-02] MEDS: Cholecalciferol (D-3) 1,000 UNIT (25MCG) TABLET PO SCH (08:11)
[2021-06-02] MEDS: Metoprolol XL (24 HR) Succ 25 MG TAB.ER.24H PO SCH (08:11)
[2021-06-02] MEDS: Insulin DETEMIR 100 UNIT/ML X5UNITS SUBQ SCH (08:13)
[2021-06-02] MEDS: Insulin LISPRO 300 UNITS/3 ML VIAL SUBQ SCH ×7 (08:14→21:41)
[2021-06-02] MEDS: Patient Taking Own Medication 1 EACH TP SCH (08:16)
[2021-06-02] MEDS: *HR* OxyCODONE Immed Rel 5 MG TABLET PO PRN (08:23)
[2021-06-02] MEDS: Budesonide/Formoterol 160/4.5 1 PUFF INH IH SCH ×2 (10:19→21:26)
[2021-06-02] MEDS: Acetaminophen 325 MG TABLET PO PRN (10:40)
[2021-06-02] MEDS: QUEtiapine Fumarate 25 MG TABLET PO SCH (20:20)
[2021-06-03] MEDS: *HR* OxyCODONE Immed Rel 5 MG TABLET PO PRN ×2 (02:34→15:39)
[2021-06-03] MEDS: Apixaban 5 MG TABLET PO SCH ×2 (05:48→18:01)
[2021-06-03] MEDS: Cholecalciferol (D-3) 1,000 UNIT (25MCG) TABLET PO SCH (09:57)
[2021-06-03] MEDS: Sennosides/Docusate Sodium TABLET PO SCH ×2 (09:57→19:53)
[2021-06-03] MEDS: Multivit/Ca/Min/Fe/FA 1 TAB TABLET PO SCH (09:58)
[2021-06-03] MEDS: Isosorbide MONOnitrate (24 HR) 30 MG TAB.ER.24H PO SCH (09:58)
[2021-06-03] MEDS: Gabapentin 300 MG CAPSULE PO SCH (09:58)
[2021-06-03] MEDS: Nystatin Cream 15 GM TUBE TP SCH ×2 (09:58→22:10)
[2021-06-03] MEDS: Metoprolol XL (24 HR) Succ 25 MG TAB.ER.24H PO SCH (09:58)
[2021-06-03] MEDS: Ascorbic Acid 500 MG TABLET PO SCH (09:58)
[2021-06-03] MEDS: Patient Taking Own Medication 1 EACH TP SCH (09:58)
[2021-06-03] MEDS: Insulin DETEMIR 100 UNIT/ML X5UNITS SUBQ SCH (09:59)
[2021-06-03] MEDS: Insulin LISPRO 300 UNITS/3 ML VIAL SUBQ SCH ×7 (10:01→19:54)
[2021-06-03] MEDS: Budesonide/Formoterol 160/4.5 1 PUFF INH IH SCH ×2 (11:02→22:40)
[2021-06-03] MEDS: QUEtiapine Fumarate 25 MG TABLET PO SCH (19:53)
[2021-06-03] MEDS: Acetaminophen 325 MG TABLET PO PRN (22:09)
[2021-06-04] MEDS: *HR* OxyCODONE Immed Rel 5 MG TABLET PO PRN ×3 (04:24→21:31)
[2021-06-04] MEDS: Apixaban 5 MG TABLET PO SCH ×2 (06:06→16:48)
[2021-06-04 08:23] LABS: Basophils # 0.1 K/mcL (0.0-0.2); Basophils % 1.3 %; Eosinophils # 0.2 K/mcL (0.0-0.6); Eosinophils % 3.4 %; Hematocrit 38.5 % (35.3-44.9); Hemoglobin 12.2 g/dL (11.5-15.4); Immature Granulocytes % 0.4 % (0-4); Lymphocytes # 0.7 K/mcL (0.6-4.6); Lymphocytes % 15.1 %; Mean Corpuscular HGB Conc 31.7 g/dL (31.6-35.5); Mean Corpuscular Hemoglobin 33.1 pg (28.0-33.3); Mean Corpuscular Volume 104.3 fL (83.0-100.0); Mean Platelet Volume 9.4 fL (9.4-12.4); Monocytes # 0.5 K/mcL (0.0-1.3); Monocytes % 9.9 %; Neutrophils # 3.3 K/mcL (1.6-8.9); Platelet Count 198 K/mcL (140-400); Red Blood Count 3.69 M/mcL (3.82-4.97); Red Cell Distribution Width 12.8 % (11.5-14.5); Segmented Neutrophils % 69.9 %; White Blood Count 4.8 K/mcL (4.3-11.1)
[2021-06-04 08:38] LABS: Calcium 9.5 mg/dL (8.6-10.3); Potassium 4.7 mEq/L (3.5-5.1)
[2021-06-04] MEDS: Insulin LISPRO 300 UNITS/3 ML VIAL SUBQ SCH ×7 (09:11→20:07)
[2021-06-04] MEDS: Sennosides/Docusate Sodium TABLET PO SCH ×2 (09:13→21:31)
[2021-06-04] MEDS: Ascorbic Acid 500 MG TABLET PO SCH (09:13)
[2021-06-04] MEDS: Insulin DETEMIR 100 UNIT/ML X5UNITS SUBQ SCH (09:13)
[2021-06-04] MEDS: Cholecalciferol (D-3) 1,000 UNIT (25MCG) TABLET PO SCH (09:13)
[2021-06-04] MEDS: Metoprolol XL (24 HR) Succ 25 MG TAB.ER.24H PO SCH (09:13)
[2021-06-04] MEDS: Gabapentin 300 MG CAPSULE PO SCH (09:13)
[2021-06-04] MEDS: Isosorbide MONOnitrate (24 HR) 30 MG TAB.ER.24H PO SCH (09:13)
[2021-06-04] MEDS: Multivit/Ca/Min/Fe/FA 1 TAB TABLET PO SCH (09:14)
[2021-06-04] MEDS: Acetaminophen 325 MG TABLET PO PRN ×2 (09:24→15:16)
[2021-06-04] MEDS: Patient Taking Own Medication 1 EACH TP SCH (09:32)
[2021-06-04] MEDS: Nystatin Cream 15 GM TUBE TP SCH ×2 (09:33→21:31)
[2021-06-04] MEDS: Budesonide/Formoterol 160/4.5 1 PUFF INH IH SCH ×2 (09:52→23:02)
[2021-06-04] MEDS: *HR* LORazepam 0.5 MG TABLET PO PRN (15:16)
[2021-06-04] MEDS: QUEtiapine Fumarate 25 MG TABLET PO SCH (21:32)
[2021-06-05] MEDS: Apixaban 5 MG TABLET PO SCH ×2 (06:22→16:55)
[2021-06-05] MEDS: *HR* OxyCODONE Immed Rel 5 MG TABLET PO PRN ×2 (09:10→16:56)
[2021-06-05] MEDS: Nystatin Cream 15 GM TUBE TP SCH ×2 (09:10→20:39)
[2021-06-05] MEDS: Gabapentin 300 MG CAPSULE PO SCH (09:11)
[2021-06-05] MEDS: Metoprolol XL (24 HR) Succ 25 MG TAB.ER.24H PO SCH (09:11)
[2021-06-05] MEDS: Ascorbic Acid 500 MG TABLET PO SCH (09:11)
[2021-06-05] MEDS: Insulin LISPRO 300 UNITS/3 ML VIAL SUBQ SCH ×7 (09:11→20:39)
[2021-06-05] MEDS: Cholecalciferol (D-3) 1,000 UNIT (25MCG) TABLET PO SCH (09:11)
[2021-06-05] MEDS: Multivit/Ca/Min/Fe/FA 1 TAB TABLET PO SCH (09:11)
[2021-06-05] MEDS: Sennosides/Docusate Sodium TABLET PO SCH ×2 (09:11→20:39)
[2021-06-05] MEDS: Isosorbide MONOnitrate (24 HR) 30 MG TAB.ER.24H PO SCH (09:11)
[2021-06-05] MEDS: Insulin DETEMIR 100 UNIT/ML X5UNITS SUBQ SCH (09:12)
[2021-06-05] MEDS: Patient Taking Own Medication 1 EACH TP SCH (09:13)
[2021-06-05] MEDS: Budesonide/Formoterol 160/4.5 1 PUFF INH IH SCH ×2 (09:58→22:10)
[2021-06-05] MEDS: QUEtiapine Fumarate 25 MG TABLET PO SCH (20:39)
[2021-06-06] MEDS: Apixaban 5 MG TABLET PO SCH ×2 (06:27→16:19)
[2021-06-06] MEDS: Multivit/Ca/Min/Fe/FA 1 TAB TABLET PO SCH (08:20)
[2021-06-06] MEDS: *HR* OxyCODONE Immed Rel 5 MG TABLET PO PRN ×2 (08:20→16:18)
[2021-06-06] MEDS: Isosorbide MONOnitrate (24 HR) 30 MG TAB.ER.24H PO SCH (08:20)
[2021-06-06] MEDS: Sennosides/Docusate Sodium TABLET PO SCH ×2 (08:21→21:52)
[2021-06-06] MEDS: Nystatin Cream 15 GM TUBE TP SCH ×2 (08:21→21:51)
[2021-06-06] MEDS: Ascorbic Acid 500 MG TABLET PO SCH (08:21)
[2021-06-06] MEDS: Metoprolol XL (24 HR) Succ 25 MG TAB.ER.24H PO SCH (08:21)
[2021-06-06] MEDS: Gabapentin 300 MG CAPSULE PO SCH (08:21)
[2021-06-06] MEDS: Cholecalciferol (D-3) 1,000 UNIT (25MCG) TABLET PO SCH (08:21)
[2021-06-06] MEDS: Patient Taking Own Medication 1 EACH TP SCH (08:33)
[2021-06-06] MEDS: Insulin LISPRO 300 UNITS/3 ML VIAL SUBQ SCH ×7 (08:33→21:50)
[2021-06-06] MEDS: Insulin DETEMIR 100 UNIT/ML X5UNITS SUBQ SCH (08:33)
[2021-06-06] MEDS: Budesonide/Formoterol 160/4.5 1 PUFF INH IH SCH ×2 (10:25→20:39)
[2021-06-06] MEDS: Acetaminophen 325 MG TABLET PO PRN (21:52)
[2021-06-06] MEDS: QUEtiapine Fumarate 25 MG TABLET PO SCH (21:52)
[2021-06-07] MEDS: Apixaban 5 MG TABLET PO SCH ×2 (06:01→17:51)
[2021-06-07] MEDS: Isosorbide MONOnitrate (24 HR) 30 MG TAB.ER.24H PO SCH (08:02)
[2021-06-07] MEDS: Multivit/Ca/Min/Fe/FA 1 TAB TABLET PO SCH (08:03)
[2021-06-07] MEDS: Sennosides/Docusate Sodium TABLET PO SCH ×2 (08:03→20:02)
[2021-06-07] MEDS: Metoprolol XL (24 HR) Succ 25 MG TAB.ER.24H PO SCH (08:03)
[2021-06-07] MEDS: Gabapentin 300 MG CAPSULE PO SCH (08:03)
[2021-06-07] MEDS: Ascorbic Acid 500 MG TABLET PO SCH (08:03)
[2021-06-07] MEDS: Cholecalciferol (D-3) 1,000 UNIT (25MCG) TABLET PO SCH (08:03)
[2021-06-07] MEDS: Insulin DETEMIR 100 UNIT/ML X5UNITS SUBQ SCH (08:04)
[2021-06-07] MEDS: Nystatin Cream 15 GM TUBE TP SCH (08:04)
[2021-06-07] MEDS: Patient Taking Own Medication 1 EACH TP SCH (08:04)
[2021-06-07] MEDS: Insulin LISPRO 300 UNITS/3 ML VIAL SUBQ SCH ×7 (08:04→20:03)
[2021-06-07] MEDS: Nystatin POWDER 30 GM BOTTLE TP SCH ×2 (10:15→20:06)
[2021-06-07] MEDS: Budesonide/Formoterol 160/4.5 1 PUFF INH IH SCH ×2 (10:52→20:38)
[2021-06-07] MEDS: QUEtiapine Fumarate 25 MG TABLET PO SCH (20:03)
[2021-06-07] MEDS: *HR* OxyCODONE Immed Rel 5 MG TABLET PO PRN (20:07)
[2021-06-08] MEDS: Acetaminophen 325 MG TABLET PO PRN ×3 (00:32→20:53)
[2021-06-08] MEDS: Apixaban 5 MG TABLET PO SCH ×2 (06:22→17:55)
[2021-06-08 08:51] LABS: Calcium 9.5 mg/dL (8.6-10.3); Potassium 4.7 mEq/L (3.5-5.1)
[2021-06-08] MEDS: Isosorbide MONOnitrate (24 HR) 30 MG TAB.ER.24H PO SCH (09:44)
[2021-06-08] MEDS: Gabapentin 300 MG CAPSULE PO SCH (09:44)
[2021-06-08] MEDS: Multivit/Ca/Min/Fe/FA 1 TAB TABLET PO SCH (09:44)
[2021-06-08] MEDS: Sennosides/Docusate Sodium TABLET PO SCH ×2 (09:44→20:52)
[2021-06-08] MEDS: Cholecalciferol (D-3) 1,000 UNIT (25MCG) TABLET PO SCH (09:44)
[2021-06-08] MEDS: Ascorbic Acid 500 MG TABLET PO SCH (09:44)
[2021-06-08] MEDS: Metoprolol XL (24 HR) Succ 25 MG TAB.ER.24H PO SCH (09:45)
[2021-06-08] MEDS: Insulin DETEMIR 100 UNIT/ML X5UNITS SUBQ SCH (09:45)
[2021-06-08] MEDS: Insulin LISPRO 300 UNITS/3 ML VIAL SUBQ SCH ×7 (09:46→20:53)
[2021-06-08] MEDS: Nystatin POWDER 30 GM BOTTLE TP SCH ×2 (09:54→20:54)
[2021-06-08] MEDS: Patient Taking Own Medication 1 EACH TP SCH (09:54)
[2021-06-08] MEDS: Budesonide/Formoterol 160/4.5 1 PUFF INH IH SCH ×2 (09:56→22:22)
[2021-06-08] MEDS: QUEtiapine Fumarate 25 MG TABLET PO SCH (20:52)
[2021-06-09] MEDS: Apixaban 5 MG TABLET PO SCH ×2 (05:41→16:24)
[2021-06-09] MEDS: Insulin LISPRO 300 UNITS/3 ML VIAL SUBQ SCH ×7 (07:58→20:00)
[2021-06-09] MEDS: Multivit/Ca/Min/Fe/FA 1 TAB TABLET PO SCH (08:15)
[2021-06-09] MEDS: Gabapentin 300 MG CAPSULE PO SCH (08:15)
[2021-06-09] MEDS: Cholecalciferol (D-3) 1,000 UNIT (25MCG) TABLET PO SCH (08:15)
[2021-06-09] MEDS: Isosorbide MONOnitrate (24 HR) 30 MG TAB.ER.24H PO SCH (08:15)
[2021-06-09] MEDS: Sennosides/Docusate Sodium TABLET PO SCH ×2 (08:15→19:42)
[2021-06-09] MEDS: Ascorbic Acid 500 MG TABLET PO SCH (08:15)
[2021-06-09] MEDS: Metoprolol XL (24 HR) Succ 25 MG TAB.ER.24H PO SCH (08:15)
[2021-06-09] MEDS: Nystatin POWDER 30 GM BOTTLE TP SCH ×2 (08:22→19:44)
[2021-06-09] MEDS: Insulin DETEMIR 100 UNIT/ML X5UNITS SUBQ SCH (10:01)
[2021-06-09] MEDS: *HR* OxyCODONE Immed Rel 5 MG TABLET PO PRN ×2 (10:27→19:41)
[2021-06-09] MEDS: Patient Taking Own Medication 1 EACH TP SCH ×2 (10:47→10:48)
[2021-06-09] MEDS: Budesonide/Formoterol 160/4.5 1 PUFF INH IH SCH ×2 (10:50→21:25)
[2021-06-09] MEDS: QUEtiapine Fumarate 25 MG TABLET PO SCH (19:42)
[2021-06-10] MEDS: Acetaminophen 325 MG TABLET PO PRN ×4 (00:06→22:43)
[2021-06-10] MEDS: Apixaban 5 MG TABLET PO SCH ×2 (05:49→16:32)
[2021-06-10] MEDS: *HR* OxyCODONE Immed Rel 5 MG TABLET PO PRN ×2 (05:49→21:02)
[2021-06-10] MEDS: Metoprolol XL (24 HR) Succ 25 MG TAB.ER.24H PO SCH (07:43)
[2021-06-10] MEDS: Multivit/Ca/Min/Fe/FA 1 TAB TABLET PO SCH (07:43)
[2021-06-10] MEDS: Sennosides/Docusate Sodium TABLET PO SCH ×2 (07:44→21:02)
[2021-06-10] MEDS: hydrOXYzine pamoate 25 MG CAPSULE PO PRN (07:44)
[2021-06-10] MEDS: Gabapentin 300 MG CAPSULE PO SCH (07:44)
[2021-06-10] MEDS: Ascorbic Acid 500 MG TABLET PO SCH (07:44)
[2021-06-10] MEDS: Cholecalciferol (D-3) 1,000 UNIT (25MCG) TABLET PO SCH (07:45)
[2021-06-10] MEDS: Isosorbide MONOnitrate (24 HR) 30 MG TAB.ER.24H PO SCH (07:45)
[2021-06-10] MEDS: Insulin LISPRO 300 UNITS/3 ML VIAL SUBQ SCH ×7 (07:47→21:06)
[2021-06-10] MEDS: Nystatin POWDER 30 GM BOTTLE TP SCH ×2 (07:49→21:05)
[2021-06-10] MEDS: Patient Taking Own Medication 1 EACH TP SCH (07:49)
[2021-06-10] MEDS: Insulin DETEMIR 100 UNIT/ML X5UNITS SUBQ SCH (09:16)
[2021-06-10] MEDS: Budesonide/Formoterol 160/4.5 1 PUFF INH IH SCH ×2 (09:35→21:30)
[2021-06-10] MEDS: QUEtiapine Fumarate 25 MG TABLET PO SCH (21:02)
[2021-06-10] MEDS: *HR* LORazepam 0.5 MG TABLET PO PRN (22:45)
[2021-06-11] MEDS: *HR* OxyCODONE Immed Rel 5 MG TABLET PO PRN ×2 (06:05→16:18)
[2021-06-11] MEDS: Apixaban 5 MG TABLET PO SCH ×2 (06:05→16:17)
[2021-06-11] MEDS: Insulin LISPRO 300 UNITS/3 ML VIAL SUBQ SCH ×7 (07:54→21:42)
[2021-06-11] MEDS: Gabapentin 300 MG CAPSULE PO SCH (07:59)
[2021-06-11] MEDS: Cholecalciferol (D-3) 1,000 UNIT (25MCG) TABLET PO SCH (07:59)
[2021-06-11] MEDS: Multivit/Ca/Min/Fe/FA 1 TAB TABLET PO SCH (07:59)
[2021-06-11] MEDS: Isosorbide MONOnitrate (24 HR) 30 MG TAB.ER.24H PO SCH (07:59)
[2021-06-11] MEDS: Sennosides/Docusate Sodium TABLET PO SCH ×2 (08:00→21:38)
[2021-06-11] MEDS: Metoprolol XL (24 HR) Succ 25 MG TAB.ER.24H PO SCH (08:00)
[2021-06-11] MEDS: Nystatin POWDER 30 GM BOTTLE TP SCH ×2 (08:00→21:46)
[2021-06-11] MEDS: Insulin DETEMIR 100 UNIT/ML X5UNITS SUBQ SCH (08:00)
[2021-06-11] MEDS: Ascorbic Acid 500 MG TABLET PO SCH (08:00)
[2021-06-11] MEDS: Patient Taking Own Medication 1 EACH TP SCH (08:01)
[2021-06-11] MEDS: Budesonide/Formoterol 160/4.5 1 PUFF INH IH SCH ×2 (10:30→21:12)
[2021-06-11] MEDS: Acetaminophen 325 MG TABLET PO PRN ×2 (10:49→21:37)
[2021-06-11] MEDS: *HR* LORazepam 0.5 MG TABLET PO PRN (16:18)
[2021-06-11] MEDS: QUEtiapine Fumarate 25 MG TABLET PO SCH (21:38)
[2021-06-12] MEDS: Acetaminophen 325 MG TABLET PO PRN (05:45)
[2021-06-12] MEDS: Apixaban 5 MG TABLET PO SCH ×2 (05:45→17:09)
[2021-06-12 07:24] LABS: Bilirubin,Urine Negative (Negative); Blood,Urine Trace-intact (Negative); Clarity,Urine Clear (Clear); Color,Urine Yellow (Yellow); Glucose,Urine (UA) Normal (Normal); Ketones,Urine Negative (Negative); Leukocyte Esterase,Urine Moderate (Negative); Nitrite,Urine Positive (Negative); Protein,Urine 100 mg/dL (Neg-Trace); Specific Gravity,Urine 1.015 (1.010-1.025); Urobilinogen,Urine Normal (Normal)
[2021-06-12 07:31] LABS: Bacteria,Urine Many per hpf (None-Few); RBC,Urine 0-3 per hpf (0-3); Squamous Epithelial Cell,Urine Few per hpf (None-Few); WBC,Urine 50-100 per hpf (0-3)
[2021-06-12] MEDS: Insulin LISPRO 300 UNITS/3 ML VIAL SUBQ SCH ×7 (08:53→19:49)
[2021-06-12] MEDS: Metoprolol XL (24 HR) Succ 25 MG TAB.ER.24H PO SCH (08:56)
[2021-06-12] MEDS: Isosorbide MONOnitrate (24 HR) 30 MG TAB.ER.24H PO SCH (08:57)
[2021-06-12] MEDS: Ascorbic Acid 500 MG TABLET PO SCH (08:58)
[2021-06-12] MEDS: Multivit/Ca/Min/Fe/FA 1 TAB TABLET PO SCH (08:58)
[2021-06-12] MEDS: Cefdinir 300 MG CAPSULE PO SCH ×2 (08:59→19:49)
[2021-06-12] MEDS: Cholecalciferol (D-3) 1,000 UNIT (25MCG) TABLET PO SCH (08:59)
[2021-06-12] MEDS: Sennosides/Docusate Sodium TABLET PO SCH ×2 (08:59→19:50)
[2021-06-12] MEDS: Gabapentin 300 MG CAPSULE PO SCH (09:00)
[2021-06-12] MEDS: Insulin DETEMIR 100 UNIT/ML X5UNITS SUBQ SCH (09:00)
[2021-06-12] MEDS: Nystatin POWDER 30 GM BOTTLE TP SCH (09:02)
[2021-06-12] MEDS: Patient Taking Own Medication 1 EACH TP SCH (09:02)
[2021-06-12] MEDS ORDERED: Nystatin POWDER 30 GM BOTTLE TP PRN (09:25)
[2021-06-12] MEDS: *HR* OxyCODONE Immed Rel 5 MG TABLET PO PRN ×2 (09:36→19:50)
[2021-06-12] MEDS: Budesonide/Formoterol 160/4.5 1 PUFF INH IH SCH ×2 (10:50→21:44)
[2021-06-12 19:45] VITALS: RESP 18
[2021-06-12] MEDS: QUEtiapine Fumarate 25 MG TABLET PO SCH (19:50)
[2021-06-13] MEDS: Apixaban 5 MG TABLET PO SCH (06:05)
[2021-06-13 07:16] VITALS: BP 160/81; PULSE 59; TEMP 97.8
[2021-06-13] MEDS: Insulin LISPRO 300 UNITS/3 ML VIAL SUBQ SCH ×4 (08:06→12:56)
[2021-06-13] MEDS: Cefdinir 300 MG CAPSULE PO SCH (08:06)
[2021-06-13] MEDS: Gabapentin 300 MG CAPSULE PO SCH (08:07)
[2021-06-13] MEDS: Metoprolol XL (24 HR) Succ 25 MG TAB.ER.24H PO SCH (08:07)
[2021-06-13] MEDS: Cholecalciferol (D-3) 1,000 UNIT (25MCG) TABLET PO SCH (08:07)
[2021-06-13] MEDS: Ascorbic Acid 500 MG TABLET PO SCH (08:07)
[2021-06-13] MEDS: Multivit/Ca/Min/Fe/FA 1 TAB TABLET PO SCH (08:07)
[2021-06-13] MEDS: Sennosides/Docusate Sodium TABLET PO SCH (08:07)
[2021-06-13] MEDS: Isosorbide MONOnitrate (24 HR) 30 MG TAB.ER.24H PO SCH (08:08)
[2021-06-13] MEDS: Patient Taking Own Medication 1 EACH TP SCH (08:09)
[2021-06-13] MEDS: Insulin DETEMIR 100 UNIT/ML X5UNITS SUBQ SCH (08:15)
[2021-06-13] MEDS: Budesonide/Formoterol 160/4.5 1 PUFF INH IH SCH (10:16)
[2021-06-13 10:19] VITALS: O2SAT 97
== END 2021-06-13 14:26 | disposition home health service (06) | DRG 71 ==
LOC: INPPIK 18:42
PROVIDERS: ADMIT Internal Medicine; ATTEND Internal Medicine